=== PATIENT | female | born 1930 | race Caucasian/White ===

== ENCOUNTER 2016-11-10 08:39 | Observation (INO) | payer MEDICARE ==
[~2016-11-10] VITALS: Ht 157.5 cm; Wt 71.9 kg
[~2016-11-10 08:39] MED LIST: ATEN1TAB73; GLIM4TAB PO; GLUCTAB PO; HYDR-3580 PO; LEXA5TAB PO; LOVA1TAB47 PO; MIAC200S; OMEP20CA5 PO; VASO10TA8 PO
[2016-11-10 08:42] VITALS: BP 158/63; PULSE 86; RESP 18; TEMP 97.9; O2SAT 99
[2016-11-10] MEDS ORDERED: CALC1TAB87 PO (08:55)
[2016-11-10] MEDS ORDERED: METF1000 PO (08:55)
[2016-11-10] MEDS ORDERED: LISI-519 PO (08:55)
[2016-11-10] MEDS ORDERED: MULTTAB67 PO (08:55)
[2016-11-10] MEDS ORDERED: LOVA20TA PO (08:55)
[2016-11-10] MEDS ORDERED: OCUVTAB PO (08:55)
[2016-11-10] MEDS ORDERED: COUM2TAB PO (08:55)
[2016-11-10] MEDS ORDERED: GLIM4TAB PO (08:55)
[2016-11-10] MEDS ORDERED: OMEP20TA PO (08:55)
[2016-11-10] MEDS ORDERED: VITA500T83 PO (08:55)
[2016-11-10] MEDS ORDERED: ATEN25TA PO (08:55)
[2016-11-10] MEDS ORDERED: ALBI1INJ SQ (08:55)
[2016-11-10] MEDS ORDERED: SERT25TA83 PO (08:55)
[2016-11-10] MEDS ORDERED: ACETAMINOPHEN/HYDROcodone 325 MG/5 MG TAB PO ONE ×2 (10:00→19:00)
--- NOTE | 2016-11-10 11:12 | RADHPO ---
EXAM DATE/TIME: 11/10/2016 10:30 [facility] COMPARISON: PELVIS AP ONLY, June 13, 2013, 22:21. INDICATIONS : Low back pain, no known injury. MEDICAL HISTORY : None. SURGICAL HISTORY : orif right hip ENCOUNTER: Initial ACUITY: 4 - 6 days PAIN SCORE: 8/10 LOCATION: low back FINDINGS: 2 AP views of the pelvis. Right-sided hip screw and intramedullary roque again seen. Old proximal right femur fracture. No evidence of acute fracture. Degenerative findings lumbar spine. Gallstone noted i n the right upper quadrant of the abdomen. CONCLUSION: 1. Old right proximal femur fracture status post ORIF. No evidence of acute fracture. 2. Degenerative findings lumbar spine. 3. Gallstone. Robert Frankel MD on November 10, 2016 at 11:04 Board Certified Radiologist. This report was verified electronically.
--- NOTE | 2016-11-10 11:16 | RADHPO ---
EXAM DATE/TIME: 11/10/2016 10:32 [facility] COMPARISON: SPINE LUMBAR COMPLETE W/OBLIQ, January 26, 2013, 10:45. INDICATIONS : Low back pain, no known injury. MEDICAL HISTORY : None. SURGICAL HISTORY : None. ENCOUNTER: Initial ACUITY: 4 - 6 days PAIN SCORE: 9/10 LOCATION: low back FINDINGS: 5 views lumbar spine. 2 cm lamellated calcification in the right upper quadrant of the abdomen indica ting a gallstone. Fracture deformity of the L3 vertebral body with superior endplate concavity and de creased height unchanged from prior. Grade 1 anterolisthesis L2 on L3 unchanged. Grade 1 anterolisthe sis L4 on L5 unchanged. Severe intervertebral disc narrowing at L2-3, L3-4, L4-5, and L5-S1. Vacuum p henomenon in the discs at L3-4, L4-5, and L5-S1. Severe bony facet hypertrophy at every level of the lumbar spine. Moderate-sized endplate osteophytes at every level of the lumbar spine. Diffuse arteria l calcification. CONCLUSION: 1. Old L3 vertebral body fracture. 2. Chronic severe bony degenerative findings of the lumbar spine. 3. Cholelithiasis. Robert Frankel MD on November 10, 2016 at 11:10 Board Certified Radiologist. This report was verified electronically.
--- NOTE | 2016-11-10 11:29 | PD ---
HPI Chief Complaint: Back/ Neck Pain or Injury Time Seen by Provider: 09:42 Travel History International Travel<30 days: No Contact w/Intl Traveler<30days: No Traveled to known affect area: No History of Present Illness HPI Is an 85 year-old woman who presents to the emergency department via EMS complaining of low back pain for the past 4 days. Is worse this morning. Symptoms were both lying down. She takes tramadol 3 times a day for arthritis all over including in her back. She denies any recent falls. She otherwise has been feeling generally well. Patient lives in a trailer with her caregiver. She uses a wheelchair in and out of the trailer, and uses a walker to get to the bathroom into her bed. History Past Medical History Narrative Medical A. fib, on warfarin Diabetes Hypertension osteoporosis Menopausal: Yes Social History Alcohol Use: Yes (glass of wine daily) Tobacco Use: No Allergies-Medications (Allergen,Severity, Reaction): Coded Allergies: Gluten (Verified Allergy, Severe, DIARRHEA, STOMACH UPSET, 04/10/13) Lactose (Verified Adverse Reaction, Mild, DIARRHEA, 04/10/13) LACTOSE INTOLERANT Uncoded Allergies: FRUIT (Allergy, Severe, DIARRHEA, GI UPSET, HIVES, 08/29/12) Reported Meds & Prescriptions Reported Meds & Active Scripts Active Reported Sertraline (Sertraline HCl) 25 Mg Tab 25 Mg PO DAILY Tanzeum 4-Pack Inj (Albiglutide) 30 Mg Pfpen 30 Mg SQ Q7D Ocuvite (Multiple Vitamins W/ Minerals) 1 Tab 1 Tab PO DAILY Multiple Vitamin 1 Tab 1 Tab PO DAILY Coumadin (Warfarin) 2 Mg Tab 2 Mg PO DAILY Vitamin C ER (Ascorbic Acid) 500 Mg Juliette 500 Mg PO DAILY Omeprazole 20 Mg Tab 20 Mg PO DAILY Metformin (Metformin HCl) 1,000 Mg Tab 1,000 Mg PO BIDPC With meals Lovastatin 20 Mg Tab 20 Mg PO DAILY Glimepiride 4 Mg Tab 4 Mg PO DAILY Take with breakfast or first main meal Lisinopril 5 Mg Tab 5 Mg PO DAILY Calcium 600 with Vitamin D (Calcium Carbonate-Cholecalciferol) 600-400 mg-Unit Tab 1 Tab PO DAILY Atenolol 25 Mg Tab 25 Mg PO DAILY Review of Systems Except as stated in HPI: all other systems reviewed are Neg Physical Exam Narrative GENERAL: 85 year-old woman, uncomfortable but nontoxic. No acute distress. SKIN: Focused skin assessment warm/dry. NECK: Trachea midline. No JVD. CARDIOVASCULAR: Regular rate and rhythm. No murmur appreciated. RESPIRATORY: No accessory muscle use. Clear to auscultation. Breath sounds equal bilaterally. GASTROINTESTINAL: Abdomen soft, non-tender, nondistended. Hepatic and splenic margins not palpable. MUSCULOSKELETAL: No obvious deformities. Tenderness throughout her very low lumbar spine and sacrum. Stiffness was some increased muscle tone. NEUROLOGICAL: Awake and alert. No obvious cranial nerve deficits. Motor grossly within normal limits. Normal speech. Data Data Last Documented VS Vital Signs Date Time Temp Pulse Resp B/P Pulse Ox O2 Delivery O2 Flow Rate FiO2 11/10/16 08:42 97.9 86 18 158/63 99 Orders Spine, Lumbar Comp W/Obliq (11/10/16 ) Pelvis, Ap Only (Routine) (11/10/16 ) Acetamin-Hydrocod 325-5 Mg ([place] 5-325 (11/10/16 10:00) Complete Blood Count With Diff (11/10/16 12:03) Basic Metabolic Panel (Bmp) (11/10/16 12:03) Urinalysis - C+S If Indicated (11/10/16 12:03) MDM Medical Decision Making Medical Screen Exam Complete: Yes Emergency Medical Condition: Yes Interpretation(s) Lumbar spine x-ray: Old L3 vertebral body fracture. Chronic severe bony degenerative findings in the lumbar spine. Cholelithiasis. X-ray pelvis: Old right proximal femur fracture status post ORIF. No evidence of acute fracture. Differential Diagnosis Acute on chronic back pain, compression fracture, pathologic fracture, infection , constipation, other Narrative Course Medical decision making 85 year-old woman with acute on chronic back pain, no evidence of new fracture. She takes tramadol at baseline. We'll try a short course of Lortab. She can' t take NSAIDs because she is on warfarin. FINAL: 85 year-old woman, intractable back pain. Improved on Lortab. She is able to walk but was still very unstable required a lot of assistance. Both her and her caregiver are comfortable with her going home. She has stairs into the house, and they're both appropriately worried about falling. We'll keep the patient in observation here in the hospital, receive physical therapy, and reassess her. Diagnosis Primary Impression: Intractable back pain Additional Impression: Gait instability Hammad Garcia MD Nov 10, 2016 11:29
[2016-11-10 12:31] LABS: AUTOMATED NEUTROPHIL # 6.2 TH/MM3 (1.8-7.7); BASOPHIL # 0.2 TH/MM3 (0-0.2); BASOPHIL % 2.6 % (0.0-2.0); EOSINOPHIL # 0.1 TH/MM3 (0-0.4); HEMO FLAGS DIFF FINAL; LYMPH % 16.4 % (9.0-44.0); LYMPHOCYTE # 1.4 TH/MM3 (1.0-4.8); MEAN CELL VOLUME 84.3 FL (80.0-100.0); MEAN CORPUSCULAR HEMOGLOBIN 27.4 PG (27.0-34.0); MEAN CORPUSCULAR HGB CONC 32.5 % (32.0-36.0); MONO % 6.9 % (0.0-8.0); NEUT % 73.1 % (16.0-70.0); PLATELET COUNT 152 TH/MM3 (150-450); RED BLOOD COUNT 4.14 MIL/MM3 (4.00-5.30); RED CELL DISTRIBUTION WIDTH 13.8 % (11.6-17.2); WHITE BLOOD COUNT 8.5 TH/MM3 (4.0-11.0)
[2016-11-10 12:35] LABS: POTASSIUM 4.7 MEQ/L (3.5-5.1)
[2016-11-10 12:38] LABS: BICARBONATE 22.4 MEQ/L (21.0-32.0)
[2016-11-10 13:00] VITALS: BP 100/60; PULSE 94; RESP 18; O2SAT 96
[2016-11-10] MEDS ORDERED: traMADol HCL 50 MG TAB PO PRN (15:00)
[2016-11-10] MEDS ORDERED: DEXTROSE 50% IN WATER 50 ML VIAL(D50) IV PRN (15:00)
[2016-11-10] MEDS ORDERED: GLUCAGON 1 MG/ML VIAL OTHER PRN (15:00)
[2016-11-10] MEDS ORDERED: PILL SPLITTER OTHER PRN (15:15)
[2016-11-10 16:00] VITALS: BP 130/74; PULSE 58; RESP 20; TEMP 97.9; O2SAT 97
[2016-11-10] MEDS: INSULIN ASPART SUPPLEMENTAL SCALE SQ SCH ×2 (16:00→21:00)
[2016-11-10 16:03] LABS: INTERNATIONAL NORMALIZED RATIO 3.5 RATIO; PROTHROMBIN TIME - PATIENT 41.2 SEC (9.8-11.6)
[2016-11-10 17:07] LABS: BLOOD, URINE NEG (NEG); GLUCOSE,URINE NEG (NEG); KETONE, URINE TRACE mg/dL (NEG); NITRITE,URINE NEG (NEG); PH, URINE 5.5 (5.0-8.5)
[2016-11-10 17:16] LABS: BACTERIA, URINE MANY /hpf; COMMENT (UR) CULTURE INDICATED; CULTURE IF INDICATED CULTURE INDICATED; RBC, URINE 0-3 /hpf (0-3); SQUAMOUS EPITHELIAL CELL URINE 0-5 /hpf (0-5); URINE COLOR YELLOW (YELLW/STRAW); WBC, URINE 15-19 /hpf (0-5)
[2016-11-10] MEDS: metFORMIN HCL 500 MG TAB PO SCH (17:21)
[2016-11-10 20:08] VITALS: BP 126/64; PULSE 69; RESP 12; TEMP 98.4; O2SAT 92
[2016-11-10 21:08] LABS: INTERNATIONAL NORMALIZED RATIO 3.5 RATIO; PROTHROMBIN TIME - PATIENT 40.5 SEC (9.8-11.6)
--- NOTE | 2016-11-10 22:57 | MH ---
cc: TOM GOOD M.D. DATE OF ADMISSION 11/10/2016 ADMISSION DIAGNOSIS Intractable back pain, gait instability HISTORY OF PRESENT ILLNESS The patient is an 85-year-old female who states that she woke up from bed on Monday morning and had excruciating back pain that did not respond to any treatment. She states that she does not recall a fall, injuring pr bumping herself into anything, turning or twisting. She had some tramadol at home that she normally takes for her arthritis and she had actually tried taking some of this. Finally, she decided to come to the emergency room. She normally takes tramadol for arthritis for particularly her right shoulder and her hip. She does state that she had right hip surgery in the past and she has never been well since that hip surgery but never any pain like the one in her back. She does state that many years ago when she was much younger she did have a fracture along her lumbosacral spine. Normally she uses a wheelchair in her trailer and uses a walker to go from the bathroom and to her bed. She does have I think an electric wheelchair outside of her house. She does have stairs that she needs to go up to get into her trailer. She has a side panel hanger who lives with her and she has a SCRAPER TENDER that will be coming in to help her but with this pain she is not able even to get to the restroom. PAST MEDICAL HISTORY 1. Atrial fibrillation, 2. Depression 3. Diabetes 4. Chronic hip pain as stated 5. Hyperlipidemia 6. Chronic kidney disease III. PAST SURGICAL HISTORY 1. Cataract surgery 2. ORIF of the right ALLERGIES She is not allergic to anything MEDICATIONS 1. Atenolol 25 mg daily. 2. Metformin 1000 mg twice a day. 3. Lovastatin 20 mg daily. 4. Prilosec 20 mg daily. 5. Enalapril 5 mg at bedtime. 6. Glimepiride 4 mg at bedtime. 7. Sertraline 25 mg daily 8. Tanzeum 30 units once a week. 9. Tramadol 50 mg three times a day. HABITS She does have a glass of wine daily. She does not smoke. SOCIAL HISTORY She lives alone with a side panel hanger in her trailer. She is a retired nurse. She has care home care insurance and will be having SCRAPER TENDER help her with activities of daily living. REVIEW OF SYSTEMS She denies any chest pain, shortness of breath or palpitations. No abdominal pain. She has good appetite. No lower extremity swelling. LABORATORY DATA White count of 8.5, hemoglobin of 11.4, hematocrit of 35, platelet count of 152. INR was 3.5. Sodium was 140, potassium was 4.7, BUN was 16, creatinine was one. Her random glucose was 121. Her UA showed moderate leukocyte esterase and a culture is indicated. PHYSICAL EXAMINATION VITAL SIGNS: Temperature is 97.9. Pulse is 58, respirations 20, blood pressure is 130/74, pulse ox on room air is 97%. When I go into the exam room, she is sitting up comfortably in bed reading a newspaper. She does not appear to be in any acute distress. HEENT: Normocephalic Atraumatic. EOM is intact. She is wearing her glasses. She has a moist oral mucosa. NECK: Supple. LUNGS: Clear. She has no rhonchi, rales or wheezes. CARDIOVASCULAR: Her heart sound is regular. ABDOMEN: Good bowel sounds in all four quadrants. EXTREMITIES: No clubbing, cyanosis or edema. Her right leg is a little bit shorter than the left. She has negative straight leg raising, however, she has a lot of pain when she rolls over in the bed to sit up. She is very tender along the right lumbosacral spine, particularly to the left. She has increased pain as she tries to bend forward or rotate her body. IMAGING STUDIES X-ray that had been done showed old L3 vertebral body fracture, chronic severe bony degenerative findings of the lumbar spine, cholelithiasis. She did have severe bony facet hypertrophy at every level. The x-ray of the pelvis showed old right proximal femur fracture status post open reduction internal fixation. No evidence of acute fracture, degenerative findings of the lumbar spine and a gallstone. ASSESSMENT/PLAN An 85-year-old female presented to the emergency room with acute onset of low back pain not relieved with tramadol. She has been admitted for pain control. We will have physical therapy see her. She does seem to get relief from the Lortab. It is just a question of whether or not she can tolerate it with an unsteady gait using a walker, etc., without increasing her fall risk. We will monitor here in the hospital and if she does well, hopefully we will be able to discharge her home in the next 24-36 hours. MD UMER Del Toro/ /8:14 PM /10:37 PM
[2016-11-10] MEDS: ACETAMINOPHEN/HYDROcodone 325 MG/5 MG TAB PO PRN (23:32)
[2016-11-11 00:08] VITALS: BP 130/62; PULSE 70; RESP 14; TEMP 98.6; O2SAT 94
[2016-11-11] MEDS: INSULIN ASPART SUPPLEMENTAL SCALE SQ SCH ×3 (07:00→16:00)
[2016-11-11] MEDS: ACETAMINOPHEN/HYDROcodone 325 MG/5 MG TAB PO PRN ×3 (07:09→15:08)
[2016-11-11 08:00] VITALS: BP 149/76; PULSE 68; RESP 20; TEMP 96.8; O2SAT 99
[2016-11-11] MEDS ORDERED: MULTIVITAMIN-OPHTHALMIC 1 TAB PO SCH (09:00)
[2016-11-11] MEDS ORDERED: ASCORBIC ACID 500 MG TAB PO SCH (09:00)
[2016-11-11] MEDS ORDERED: NON-FORMULARY DRUG (Multiple Vitamin 1 TAB) PO SCH (09:00)
[2016-11-11] MEDS ORDERED: PRAVASTATIN SOD 20 MG TAB PO SCH (09:00)
[2016-11-11] MEDS ORDERED: PANTOPRAZOLE SOD 20 MG DELAYED RELEASE TAB PO SCH (09:00)
[2016-11-11] MEDS ORDERED: GLIMEPIRIDE 4 MG TAB PO SCH (09:00)
[2016-11-11] MEDS ORDERED: SERTRALINE HCL 50 MG TAB PO SCH (09:00)
[2016-11-11] MEDS ORDERED: ATENOLOL 25 MG TAB PO SCH (09:00)
[2016-11-11] MEDS ORDERED: LISINOPRIL 5 MG TAB PO SCH (09:00)
[2016-11-11] MEDS: metFORMIN HCL 500 MG TAB PO SCH ×2 (10:24→17:31)
--- NOTE | 2016-11-11 11:44 | HHI.PR ---
Subjective Remarks Slept well last night but significant amount of pain when she tried to get out of bed. Some relief with norco but took a while to receive it. States she is usually able to get out of bed alone at home, uses walker in trailer to get about. Denies burning, dysuria, fever . chills or frequency. States she has had uti's in the past and would know if she has one. Wears diapers. Objective Vitals Vital Signs Date Time Temp Pulse Resp B/P Pulse Ox O2 Delivery O2 Flow Rate FiO2 11/11/16 08:00 96.8 68 20 149/76 99 11/11/16 00:08 98.6 70 14 130/62 94 11/10/16 20:08 98.4 69 12 126/64 92 11/10/16 16:00 97.9 58 20 130/74 97 11/10/16 13:00 94 18 100/60 96 Room Air 11/10/16 11/10/16 11/11/16 15:00 23:00 07:00 Output Total 300 ml Balance -300 ml Output Urine Total 300 ml # Voids 1 1 # Bowel Movements 1 Result Diagram: 11/10/16 1216 11/10/16 1216 Other Results Laboratory Tests Test 11/10/16 11/10/16 11/10/16 12:16 16:45 20:42 Hemoglobin 11.4 GM/DL (11.6-15.3) Neutrophils (%) (Auto) 73.1 % (16.0-70.0) Basophils (%) (Auto) 2.6 % (0.0-2.0) Prothrombin Time 41.2 SEC 40.5 SEC (9.8-11.6) (9.8-11.6) Chloride Level 108 MEQ/L (98-107) Estimat Glomerular Filtration 53 ML/MIN (>89) Rate Random Glucose 121 MG/DL (74-106) Urine Turbidity CLOUDY (CLEAR) Urine Ketones TRACE mg/dL (NEG) Urine Leukocyte Esterase MOD (NEG) Urine WBC 15-19 /hpf (0-5) Urine Bacteria MANY /hpf (NONE) Imaging Last Impressions Pelvis X-Ray 11/10/16 0000 Signed Impressions: Service Date/Time: November 10:30 - CONCLUSION: 1. Old right proximal femur fracture status post ORIF. No evidence of acute fracture. 2. Degenerative findings lumbar spine. 3. Gallstone. Robert Frankel MD Lumbar Spine X-Ray 11/10/16 0000 Signed Impressions: Service Date/Time: November 10:32 - CONCLUSION: 1. Old L3 vertebral body fracture. 2. Chronic severe bony degenerative findings of the lumbar spine. 3. Cholelithiasis. Robert Frankel MD Objective Remarks Lying in bed, looks comfortable cta rrr +bs, nontender tender l-s spine, unable to bend foward due to pain A/P Problem List: (1) Gait instability Status: Chronic Plan: normally limited in mobility with need of walker and wheelchair but able to move around her home environment now unable to get out of bed w/o pain and assistence, cont PT and pain control (2) Intractable back pain Status: Acute Plan: awoke with sudden onset of back back xray with severe djd and evidence of prior compression fractures she has significant osteoporosis to the extent she sustained a hip fracture simply by standing will check mri, try back brace (3) Diabetes Status: Chronic Plan: Cont diabetic diet and home regimen (4) Abnormal urinalysis Status: Acute Plan: Ed ran u/a on her . Suspect due to complaint of back pain. Culture pending. Was going to treat for uti but she really has no uti symptoms. Will monitor culture and clinical status before treating. (5) CHRONIC ATRIAL FIBRILLATION Status: Chronic Plan: on coumadin , inr supratherapeutic, hold coumadin for now. Problem Qualifiers (1) Diabetes: Angela Strauss MD Nov 11, 2016 11:44
[2016-11-11 12:00] VITALS: BP 140/63; PULSE 57; RESP 20; TEMP 97; O2SAT 96
[2016-11-11] MEDS ORDERED: SULFAMETHOXAZOLE-TRIMETHOPRIM DS 800-160 MG TAB PO SCH (12:00)
[2016-11-11] MEDS ORDERED: ACETAMINOPHEN/HYDROcodone 325 MG/5 MG TAB PO SCH (12:00)
--- NOTE | 2016-11-11 13:31 | RADHPO ---
EXAM DATE/TIME: 11/11/2016 12:14 [facility] COMPARISON: No previous studies available for comparison. INDICATIONS : Low back pain MEDICAL HISTORY : Hypertension. Diabetes mellitus type 2. SURGICAL HISTORY : Tubal ligation. Right hip repair, bladder tack, cataract. ENCOUNTER: Initial ACUITY: 1 day PAIN SCORE: 5/10 LOCATION: [facility] TECHNIQUE: Multiplanar multisequence MRI of the lumbar spine was performed without contrast. FINDINGS: There are extensive degenerative changes in the lumbar spine. There is loss of vertebral body height at L2, L3 and L4. There is very subtle end plate compression at L1 that would be consistent with a subtle acute compression. T12-L1: There is mild interspace ridging without significant spinal stenosis, neural foramina adequate. Mild disc protrusion is evident. L1-L2: There is some mild bulging at L1-2 causing some flattening of the anterior thecal space without signi ficant spinal stenosis, neural foramina are adequate. L2-L3: There is a central disc protrusion evident flattening the anterior thecal space causing a mild degree of spinal stenosis. Neural foramina are adequate. L3-L4: There is generalized bulging at L3-4 causing some flattening of the anterior thecal space with modera te degenerative changes of the facets. L4-L5: Degenerative changes are present at L4-5 with bilateral neural foramina encroachment worse on the lef t than the right with extensive facet arthritis present. L5-S1: There is mild uncinate ridging present with bilateral neural foramina encroachment. Mild facet disea se is present worse on the right than the left. SI joints are normal. CONCLUSION: 1. Subtle compression of L1. 2. Extensive disc disease at multiple levels at L3-4. 3. Old compression at L2 and L3. Ptee Sandra MD FACR on November 11, 2016 at 13:18 Board Certified Radiologist. This report was verified electronically.
[2016-11-11 16:00] VITALS: BP 128/61; PULSE 58; RESP 20; TEMP 98.8; O2SAT 94
[2016-11-11] MEDS ORDERED: WARFARIN SOD 2 MG TAB PO SCH (16:00)
[2016-11-11] MEDS ORDERED: HYDR-3516 PO (17:31)
[2016-11-15] MEDS ORDERED: ALBIGLUTIDE 30 MG SQ SCH (09:00)
== END 2016-11-11 18:47 ==
LOC: PHED 08:39 → PHEDA 12:10 → PH3B 15:12
PROVIDERS: ADMIT Legal Medicine; ATTEND Legal Medicine
DX: R26.9 Unspecified abnormalities of gait and mobility (principal); M81.0 Age-related osteoporosis without current pathological fracture; G89.29 Other chronic pain; M25.559 Pain in unspecified hip; R82.99 Other abnormal findings in urine; B96.20 Unspecified Escherichia coli [E. coli] as the cause of diseases classified elsewhere; I48.2 Chronic atrial fibrillation; E11.22 Type 2 diabetes mellitus with diabetic chronic kidney disease; N18.3 Chronic kidney disease, stage 3 (moderate); E78.5 Hyperlipidemia, unspecified; M19.90 Unspecified osteoarthritis, unspecified site
CPT/HCPCS: 72110; 72148; 72170; 80048; 81001; 82948; 85025; 85610; 87077; 87086; 87186; 97162; 99285; G0378; G8987; G8988

== ENCOUNTER 2017-08-07 17:08 | Inpatient (IN) | payer MEDICARE ==
[~2017-08-07] VITALS: Ht 167.6 cm; Wt 72.7 kg
[~2017-08-07 17:08] MED LIST changes: +ALBI1INJ SQ; -ATEN1TAB73; +ATEN25TA PO; +CALC1TAB87 PO; +COUM2TAB PO; -GLUCTAB PO; +HYDR-3516 PO; -HYDR-3580 PO; -LEXA5TAB PO; +LISI-519 PO; -LOVA1TAB47 PO; +LOVA20TA PO; +METF1000 PO; -MIAC200S; +MULTTAB67 PO; +OCUVTAB PO; -OMEP20CA5 PO; +OMEP20TA93 PO; +SERT25TA83 PO; -VASO10TA8 PO; +VITA500T83 PO
[2017-08-07 17:27] VITALS: BP 141/65; PULSE 72; RESP 18; TEMP 98.4; O2SAT 96
[2017-08-07] MEDS ORDERED: LACTULOSE SYRUP 20 GM/30 ML CUP PO PRN (18:45)
[2017-08-07] MEDS ORDERED: NALOXONE HCL 0.4 MG/ML AMP IV PUSH PRN (18:45)
[2017-08-07] MEDS ORDERED: MAGNESIUM HYDROXIDE SUSP 30 ML CUP PO PRN (18:45)
[2017-08-07] MEDS ORDERED: ACETAMINOPHEN 325 MG TAB PO PRN (18:45)
[2017-08-07] MEDS ORDERED: SODIUM CHLORIDE 0.9% FLUSH 10 ML FLUSH IV FLUSH PRN (18:45)
[2017-08-07] MEDS ORDERED: BISACODYL 10 MG SUPP RECTAL PRN (18:45)
[2017-08-07] MEDS ORDERED: SENNOSIDES 8.6 MG TAB PO PRN (18:45)
[2017-08-07] MEDS ORDERED: ONDANSETRON HCL 4 MG/2 ML VIAL IVP PRN (18:45)
--- NOTE | 2017-08-07 19:15 | HHI.HP ---
HPI Service [facility] Hospitalists Primary Care Physician Chucho Kim MD Admission Diagnosis pneumonia Chief Complaint: cough ,congestion weakness progressed over 1 week Travel History International Travel<30 Days: No Contact w/Intl Traveler <30 Da: No Traveled to Known Affected Are: No History of Present Illness 86 y/o white female with hx atrial fib,dm who has had cough congestion fever for about 1 week and had outpatient chest xray showing pneumonia and admitted for IV antibiotics . Patient has live in primary care coordinator but the primary care coordinator is very sick herself and patient basicly wheel chair bound from djd lumbar and previous hip surgery. Labs are pending,will start on rocephin and zithromax. Patient also complains of generalized weakness ,chills. Review of Systems Constitutional: COMPLAINS OF: Fatigue, Fever Respiratory: COMPLAINS OF: Cough, Sputum production Past Family Social History Past Medical History dm,atrial fib,depression,hyperlipidemia, Past Surgical History cataract rt hip surgery Reported Medications atenolol 25,[id number] bid,lisinopril 5,glipizide 4mg prilosec 20 sertraline 25 tanzeum Allergies: Coded Allergies: gluten (Unverified Allergy, Severe, DIARRHEA, STOMACH UPSET, 01/24/17) lactose (Unverified Adverse Reaction, Mild, DIARRHEA, 01/24/17) LACTOSE INTOLERANT Uncoded Allergies: FRUIT (Allergy, Severe, DIARRHEA, GI UPSET, HIVES, 08/29/12) Social History drinks occ non smoker Physical Exam Vital Signs Vital Signs Date Time Temp Pulse Resp B/P (MAP) Pulse Ox O2 Delivery O2 Flow Rate FiO2 08/07/17 17:27 98.4 72 18 141/65 (90) 96 Physical Exam GENERAL: This is a well-nourished, well-developed patient, in no apparent distress. SKIN: No rashes, ecchymoses or lesions. Cool and dry. HEAD: Atraumatic. Normocephalic. No temporal or scalp tenderness. EYES: Pupils equal round and reactive. Extraocular motions intact. No scleral icterus. No injection or drainage. ENT: Nose without bleeding, purulent drainage or septal hematoma. Throat without erythema, tonsillar hypertrophy or exudate. Uvula midline. Airway patent. NECK: Trachea midline. No JVD or lymphadenopathy. Supple, nontender, no meningeal signs. CARDIOVASCULAR: Regular rate and rhythm without murmurs, gallops, or rubs. RESPIRATORY: Decrease breath sounds with rhonchi bases GASTROINTESTINAL: Abdomen soft, non-tender, nondistended. No hepato-splenomegaly , or palpable masses. No guarding. MUSCULOSKELETAL: Extremities without clubbing, cyanosis, or edema. No joint tenderness, effusion, or edema noted. No calf tenderness. Negative Homans sign bilaterally. NEUROLOGICAL: Awake and alert. Cranial nerves II through XII intact. Motor and sensory grossly within normal limits. Five out of 5 muscle strength in all muscle groups. Normal speech. Laboratory pending Imaging cxr as out patient showed lower lobe infiltrate consistent with pneumonia Course as above start antibiotics Caprini VTE Risk Assessment Caprini VTE Risk Assessment: Mod/High Risk (score >= 2) Caprini Risk Assessment Model Point Value = 1 Point Value = 2 Point Value = 3 Point Value = 5 Age 41-60 Minor surgery BMI > 25 kg/m2 Swollen legs Varicose veins or History of unexplained or recurrent spontaneous Oral contraceptives or hormone replacement Sepsis (< 1 month) Serious lung disease, including pneumonia (< 1 month) Abnormal pulmonary function Acute myocardial infarction Congestive heart failure (< 1 month) History of inflammatory bowel disease Medical patient at bed rest Age 61-74 Arthroscopic surgery Major open surgery (> 45 min) Laparoscopic surgery (> 45 min) Malignancy Confined to bed (> 72 hours) Immobilizing plaster cast Central venous access Age >= 75 History of VTE Family history of VTE Factor V Leiden Prothrombin [id number] Lupus anticoagulant Anticardiolipin antibodies Elevated serum homocysteine Heparin-induced thrombocytopenia Other congenital or acquired thrombophilia Stroke (< 1 month) Elective arthroplasty Hip, pelvis, or leg fracture Acute spinal cord injury (< 1 month) Prophylaxis Regimen Total Risk Factor Score Risk Level Prophylaxis Regimen 0-1 Low Early ambulation 2 Moderate Order ONE of the following: *Sequential Compression Device (SCD) *Heparin 5000 units SQ BID 3-4 Higher Order ONE of the following medications: *Heparin 5000 units SQ TID *Enoxaparin/Lovenox 40 mg SQ daily (WT < 150 kg, CrCl > 30 mL/min) *Enoxaparin/Lovenox 30 mg SQ daily (WT < 150 kg, CrCl > 10-29 mL/min) *Enoxaparin/Lovenox 30 mg SQ BID (WT < 150 kg, CrCl > 30 mL/min) AND/OR *Sequential Compression Device (SCD) 5 or more Highest Order ONE of the following medications: *Heparin 5000 units SQ TID (Preferred with Epidurals) *Enoxaparin/Lovenox 40 mg SQ daily (WT < 150 kg, CrCl > 30 mL/min) *Enoxaparin/Lovenox 30 mg SQ daily (WT < 150 kg, CrCl > 10-29 mL/min) *Enoxaparin/Lovenox 30 mg SQ BID (WT < 150 kg, CrCl > 30 mL/min) AND *Sequential Compression Device (SCD) Assessment and Plan Problem List: (1) Pneumonia ICD Codes: J18.9 - Pneumonia, unspecified organism Plan: rocephin and zithromax IV as patient rn l and d is sick will need rehab (2) CHRONIC ATRIAL FIBRILLATION ICD Codes: I48.2 - CHRONIC ATRIAL FIBRILLATION Status: Chronic Plan: continue home medications (3) Diabetes ICD Codes: E11.9 - Type 2 diabetes mellitus without complications Status: Chronic Plan: sliding scale home medications Assessment and Plan further plan as case develops Code Status full Discussed Condition With patient Physician Certification 2 Midnight Certification Type: Admission for Inpatient Services Order for Inpatient Services The services are ordered in accordance with Medicare regulations or non- Medicare payer requirements, as applicable. In the case of services not specified as inpatient-only, they are appropriately provided as inpatient services in accordance with the 2-midnight benchmark. Estimated LOS (days): 2 2 days is the estimated time the patient will need to remain in the hospital, assuming treatment plan goals are met and no additional complications. Post-Hospital Plan: SNF Problem Qualifiers (1) Pneumonia: Chucho Kim MD Aug 07, 2017 19:15
[2017-08-07 20:00] VITALS: BP 146/67; PULSE 81; RESP 17; TEMP 98.1; O2SAT 94
[2017-08-07] MEDS ORDERED: PILL SPLITTER OTHER PRN (20:30)
[2017-08-07] MEDS: SODIUM CHLOR 0.45% 1000 ML INJ 1,000 ML IV SCH (20:51)
[2017-08-07] MEDS: SODIUM CHLORIDE 0.9% FLUSH 10 ML FLUSH IV FLUSH SCH (20:52)
[2017-08-07] MEDS: DOCUSATE SODIUM 50 MG/SENNA 8.6 MG TAB PO SCH (20:52)
[2017-08-07] MEDS ORDERED: cefTRIAXone INJ 1,000 MG in SODIUM CHLORIDE 0.9% INJ 100 ML IV ONE (21:00)
[2017-08-07] MEDS ORDERED: AZITHROMYCIN INJ 500 MG in SODIUM CHLOR 0.9% 250 ML INJ 250 ML IV ONE (21:00)
[2017-08-07 21:44] LABS: AUTOMATED NEUTROPHIL # 10.4 TH/MM3 (1.8-7.7); BASOPHIL # 0.1 TH/MM3 (0-0.2); BASOPHIL % 0.4 % (0.0-2.0); EOSINOPHIL # 0.1 TH/MM3 (0-0.4); EOSINOPHIL % 0.9 % (0.0-4.0); HEMATOCRIT 30.9 % (35.0-46.0); HEMOGLOBIN 10.1 GM/DL (11.6-15.3); LYMPH % 13.2 % (9.0-44.0); LYMPHOCYTE # 1.8 TH/MM3 (1.0-4.8); MEAN CELL VOLUME 81.8 FL (80.0-100.0); MEAN CORPUSCULAR HEMOGLOBIN 26.8 PG (27.0-34.0); MEAN CORPUSCULAR HGB CONC 32.8 % (32.0-36.0); MEAN PLATELET VOLUME 9.6 FL (7.0-11.0); MONO % 11.4 % (0.0-8.0); MONOCYTE # 1.6 TH/MM3 (0-0.9); NEUT % 74.1 % (16.0-70.0); PLATELET COUNT 195 TH/MM3 (150-450); RED BLOOD COUNT 3.77 MIL/MM3 (4.00-5.30); RED CELL DISTRIBUTION WIDTH 15.2 % (11.6-17.2)
[2017-08-07 21:49] LABS: INTERNATIONAL NORMALIZED RATIO 3.1 RATIO; PROTHROMBIN TIME - PATIENT 31.4 SEC (9.8-11.6)
[2017-08-07 21:55] LABS: BICARBONATE 23.4 MEQ/L (21.0-32.0); CALCIUM 9.5 MG/DL (8.5-10.1); CREATININE 1.13 MG/DL (0.50-1.00)
[2017-08-07] MEDS ORDERED: DEXTROSE 50% IN WATER 50 ML VIAL(D50) IV PUSH PRN (22:45)
[2017-08-07] MEDS ORDERED: GLUCAGON 1 MG/ML VIAL OTHER PRN (22:45)
[2017-08-07] MEDS ORDERED: POTASSIUM CHLORIDE 8 MEQ CONTROLLED RELEASE TAB PO ONE (23:00)
[2017-08-07 23:25] VITALS: BP 139/62; PULSE 81; RESP 18; TEMP 98.2; O2SAT 96
[2017-08-07] MEDS: ACETAMINOPHEN/HYDROcodone 325 MG/5 MG TAB PO SCH (23:43)
[2017-08-08] VITALS (8 sets, daily range): BP systolic 116–157; BP diastolic 59–67; PULSE 52–73; RESP 13–20; TEMP 98.2–99.3; O2SAT 96–100
[2017-08-08] MEDS: ACETAMINOPHEN/HYDROcodone 325 MG/5 MG TAB PO SCH ×4 (05:03→23:59)
[2017-08-08] MEDS: guaiFENesin/DEXTROMETHORPHAN 200 MG/20 MG/10 ML CUP PO PRN ×3 (05:49→18:51)
[2017-08-08 06:29] LABS: AUTOMATED NEUTROPHIL # 8.7 TH/MM3 (1.8-7.7); BASOPHIL # 0.1 TH/MM3 (0-0.2); BASOPHIL % 0.6 % (0.0-2.0); EOSINOPHIL # 0.1 TH/MM3 (0-0.4); EOSINOPHIL % 1.1 % (0.0-4.0); HEMATOCRIT 29.6 % (35.0-46.0); HEMOGLOBIN 9.7 GM/DL (11.6-15.3); LYMPH % 15.1 % (9.0-44.0); LYMPHOCYTE # 1.8 TH/MM3 (1.0-4.8); MEAN CELL VOLUME 81.9 FL (80.0-100.0); MEAN CORPUSCULAR HEMOGLOBIN 26.7 PG (27.0-34.0); MEAN CORPUSCULAR HGB CONC 32.6 % (32.0-36.0); MEAN PLATELET VOLUME 9.6 FL (7.0-11.0); MONO % 10.3 % (0.0-8.0); MONOCYTE # 1.2 TH/MM3 (0-0.9); NEUT % 72.9 % (16.0-70.0); PLATELET COUNT 180 TH/MM3 (150-450); RED BLOOD COUNT 3.62 MIL/MM3 (4.00-5.30); RED CELL DISTRIBUTION WIDTH 15.4 % (11.6-17.2); WHITE BLOOD COUNT 11.9 TH/MM3 (4.0-11.0)
[2017-08-08 06:56] LABS: BICARBONATE 23.7 MEQ/L (21.0-32.0); CALCIUM 8.7 MG/DL (8.5-10.1); CREATININE 1.01 MG/DL (0.50-1.00)
[2017-08-08] MEDS: INSULIN ASPART SUPPLEMENTAL SCALE SQ SCH ×4 (07:39→21:00)
[2017-08-08] MEDS: MULTIVITAMIN TAB PO SCH (08:51)
[2017-08-08] MEDS: ATENOLOL 25 MG TAB PO SCH (08:52)
[2017-08-08] MEDS: SERTRALINE HCL 50 MG TAB PO SCH (08:52)
[2017-08-08] MEDS: PRAVASTATIN SOD 20 MG TAB PO SCH (08:52)
[2017-08-08] MEDS: PANTOPRAZOLE SOD 20 MG DELAYED RELEASE TAB PO SCH (08:52)
[2017-08-08] MEDS: DOCUSATE SODIUM 50 MG/SENNA 8.6 MG TAB PO SCH ×2 (08:53→21:54)
[2017-08-08] MEDS: CALCIUM/VITAMIN D 250 MG/125 U TAB PO SCH (08:53)
[2017-08-08] MEDS: LISINOPRIL 5 MG TAB PO SCH (08:53)
[2017-08-08] MEDS: MULTIVITAMIN-OPHTHALMIC 1 TAB PO SCH (08:53)
[2017-08-08] MEDS: SODIUM CHLORIDE 0.9% FLUSH 10 ML FLUSH IV FLUSH SCH ×2 (08:54→21:56)
--- NOTE | 2017-08-08 08:55 | RADRPT ---
EXAM DATE/TIME: 08/08/2017 08:23 [facility] COMPARISON: No previous studies available for comparison. INDICATIONS : Pneumonia. Shortness of breath, cough. MEDICAL HISTORY : None. SURGICAL HISTORY : None. ENCOUNTER: Initial ACUITY: 1 day PAIN SCORE: 0/10 LOCATION: Bilateral chest FINDINGS: PA and lateral views of the chest demonstrate the lungs to be hyperaerated without evidence of mass, infiltrate or effusion. Heart enlarged. Blunting costophrenic angle posteriorly on the left. The card iomediastinal contours are unremarkable. Osseous structures are intact. CONCLUSION: 1. Hyperinflation which can be seen with COPD. 2. No infiltrate. 3. Cardiomegaly. 4. Probable pleural scarring. Greg Alvarez MD on August 08, 2017 at 8:53 Board Certified Radiologist. This report was verified electronically.
[2017-08-08] MEDS ORDERED: ASCORBIC ACID 500 MG PO SCH (09:00)
[2017-08-08] MEDS ORDERED: GLIMEPIRIDE 4 MG TAB PO SCH (09:00)
[2017-08-08] MEDS ORDERED: ALBIGLUTIDE SQ SCH (09:00)
[2017-08-08] MEDS ORDERED: metFORMIN HCL 500 MG TAB PO SCH (09:00)
[2017-08-08] MEDS: SODIUM CHLOR 0.45% 1000 ML INJ 1,000 ML IV SCH (10:28)
--- NOTE | 2017-08-08 15:17 | HHI.PR ---
Subjective Remarks Pt sitting up in the chair and reports that she is feeling overall better today but had a lot of coughing overnight. She is eating better today Objective Vitals Vital Signs Date Time Temp Pulse Resp B/P (MAP) Pulse Ox O2 Delivery O2 Flow Rate FiO2 08/08/17 12:16 98 08/08/17 09:01 Nasal Cannula 2.00 08/08/17 08:04 99.1 72 16 137/62 (87) 98 08/08/17 06:22 Nasal Cannula 2.00 08/08/17 04:15 98.2 73 18 138/66 (90) 97 08/08/17 04:10 Room Air 08/08/17 00:00 Room Air 08/07/17 23:25 98.2 81 18 139/62 (87) 96 08/07/17 20:00 Room Air 08/07/17 20:00 98.1 81 17 146/67 (93) 94 08/07/17 17:27 98.4 72 18 141/65 (90) 96 08/08/17 08/08/17 08/09/17 15:00 23:00 07:00 Intake Total 1000 ml Balance 1000 ml IV Total 1000 ml Result Diagram: 08/08/17 0500 08/08/17 0500 Other Results Laboratory Tests Test 08/07/17 20:55 08/08/17 05:00 White Blood Count 14.0 TH/MM3 11.9 TH/MM3 Red Blood Count 3.77 MIL/MM3 3.62 MIL/MM3 Hemoglobin 10.1 GM/DL 9.7 GM/DL Hematocrit 30.9 % 29.6 % Mean Corpuscular Volume 81.8 FL 81.9 FL Mean Corpuscular Hemoglobin 26.8 PG 26.7 PG Mean Corpuscular Hemoglobin Concent 32.8 % 32.6 % Red Cell Distribution Width 15.2 % 15.4 % Platelet Count 195 TH/MM3 180 TH/MM3 Mean Platelet Volume 9.6 FL 9.6 FL Neutrophils (%) (Auto) 74.1 % 72.9 % Lymphocytes (%) (Auto) 13.2 % 15.1 % Monocytes (%) (Auto) 11.4 % 10.3 % Eosinophils (%) (Auto) 0.9 % 1.1 % Basophils (%) (Auto) 0.4 % 0.6 % Neutrophils # (Auto) 10.4 TH/MM3 8.7 TH/MM3 Lymphocytes # (Auto) 1.8 TH/MM3 1.8 TH/MM3 Monocytes # (Auto) 1.6 TH/MM3 1.2 TH/MM3 Eosinophils # (Auto) 0.1 TH/MM3 0.1 TH/MM3 Basophils # (Auto) 0.1 TH/MM3 0.1 TH/MM3 CBC Comment DIFF FINAL DIFF FINAL Differential Comment Prothrombin Time 31.4 SEC Prothromb Time International Ratio 3.1 RATIO Blood Urea Nitrogen 18 MG/DL 17 MG/DL Creatinine 1.13 MG/DL 1.01 MG/DL Random Glucose 43 MG/DL 83 MG/DL Calcium Level 9.5 MG/DL 8.7 MG/DL Sodium Level 138 MEQ/L 138 MEQ/L Potassium Level 3.4 MEQ/L 3.9 MEQ/L Chloride Level 105 MEQ/L 107 MEQ/L Carbon Dioxide Level 23.4 MEQ/L 23.7 MEQ/L Anion Gap 10 MEQ/L 7 MEQ/L Estimat Glomerular Filtration Rate 46 ML/MIN 52 ML/MIN Imaging Last Impressions Chest X-Ray 08/08/17 0600 Signed Impressions: Service Date/Time: Tuesday, August 08, 2017 08:23 - CONCLUSION: 1. Hyperinflation which can be seen with COPD. 2. No infiltrate. 3. Cardiomegaly. 4. Probable pleural scarring. Greg Alvarez MD Outpt CXR (08/07/17): - Patchy infiltrate in the right lung base, rule out pneumonia. There is otherwise some fibrotic appearing change throughout the lungs. The heart size is the upper limits of normal. Mild degenerative changes of scoliosis noted throughout the spine. Objective Remarks General: NAD Chest: Equal air movement bilaterally Cardiac: Irregular Abd: +BS, soft ND/NT Ext: No edema A/P Problem List: (1) Pneumonia ICD Codes: J18.9 - Pneumonia, unspecified organism Plan: - Pt is an 86 y/o female with chronic A. fib, HTN, hyperlipidemia, diabetes mellitus, and CKD stage 3 - She was admitted to [facility] [place] on 08/07/17 with complaints of productive cough, congestion who had an outpt CXR on 08/07/17 that noted possible RLL pneumonia. Pt lives with a promotions specialist who has also been sick recently - Her labs at admission noted elevated WBC count of 14 - Pt was started on IV Rocephin and Azithromycin for CAP - Pt was also given some IVF, pt eating better today, stop IVF on 08/08 - PT evaluated today and recommended SNF placement at the end of this hospitalization. - Case management is following for discharge planning. - Repeat CXR in AM - Anticipate d/c to SNF tomorrow (2) CHRONIC ATRIAL FIBRILLATION ICD Codes: I48.2 - CHRONIC ATRIAL FIBRILLATION Status: Chronic Plan: - Pt was continued on Atenolol 25mg po daily and Coumadin - INR on 08/07 was 3.1 - Hold Coumadin dose today and recheck INR in AM (3) Diabetes ICD Codes: E11.9 - Type 2 diabetes mellitus without complications Status: Chronic Plan: - Amaryl 4mg po daily and Metformin 1000mg po BIDPC were continued at admission - NovoLog SSI - Accu checks (4) CKD (chronic kidney disease) stage 3, GFR 30-59 ml/min ICD Codes: N18.3 - Chronic kidney disease, stage 3 (moderate) Status: Chronic Plan: - Labs are stable Assessment and Plan Patient examined. Assessment and plan formulated with Cira Hernández PA-C. I agree with the above. Problem Qualifiers (1) Pneumonia: (2) Diabetes: Cira Hernández Aug 08, 2017 15:17 Willis Harris DO Aug 14, 2017 10:44
[2017-08-08] MEDS ORDERED: WARFARIN SOD 2 MG TAB PO SCH (16:00)
[2017-08-08] MEDS: cefTRIAXone INJ 1,000 MG in SODIUM CHLORIDE 0.9% INJ 100 ML IV SCH (21:54)
[2017-08-08] MEDS: AZITHROMYCIN INJ 500 MG in SODIUM CHLOR 0.9% 250 ML INJ 250 ML IV SCH (21:55)
[2017-08-09] VITALS (8 sets, daily range): BP systolic 110–158; BP diastolic 50–84; PULSE 69–93; RESP 14–18; TEMP 96.8–98.3; O2SAT 92–100
[2017-08-09] MEDS: guaiFENesin/DEXTROMETHORPHAN 200 MG/20 MG/10 ML CUP PO PRN (00:32)
[2017-08-09] MEDS: guaiFENesin/CODEINE SYRUP 200 MG/20 MG/10 ML CUP PO PRN ×3 (04:35→17:57)
[2017-08-09] MEDS: ACETAMINOPHEN/HYDROcodone 325 MG/5 MG TAB PO SCH ×4 (05:55→23:44)
--- NOTE | 2017-08-09 06:35 | RADRPT ---
EXAM DATE/TIME: 08/09/2017 05:17 [place] COMPARISON: CHEST PA & LAT, August 08, 2017, 8:23. INDICATIONS : Evaluate for pneumonia. MEDICAL HISTORY : None. SURGICAL HISTORY : None. ENCOUNTER: Subsequent ACUITY: 2 days PAIN SCORE: Non-responsive. LOCATION: Bilateral chest FINDINGS: Minimal airspace disease in the left lung base. Cardiac silhouette is enlarged. Remainder of exam is unchanged. CONCLUSION: 1. Minimal left lung base linear airspace disease consistent with atelectasis. Sj Luz MD on August 09, 2017 at 6:33 Board Certified Radiologist. This report was verified electronically.
[2017-08-09 07:47] LABS: INTERNATIONAL NORMALIZED RATIO 2.2 RATIO; PROTHROMBIN TIME - PATIENT 22.5 SEC (9.8-11.6)
[2017-08-09 07:52] LABS: AUTOMATED NEUTROPHIL # 6.5 TH/MM3 (1.8-7.7); BASOPHIL # 0.1 TH/MM3 (0-0.2); BASOPHIL % 0.7 % (0.0-2.0); EOSINOPHIL # 0.3 TH/MM3 (0-0.4); EOSINOPHIL % 3.3 % (0.0-4.0); HEMATOCRIT 30.1 % (35.0-46.0); HEMOGLOBIN 9.9 GM/DL (11.6-15.3); LYMPH % 17.7 % (9.0-44.0); LYMPHOCYTE # 1.8 TH/MM3 (1.0-4.8); MEAN CELL VOLUME 83.1 FL (80.0-100.0); MEAN CORPUSCULAR HEMOGLOBIN 27.3 PG (27.0-34.0); MEAN CORPUSCULAR HGB CONC 32.9 % (32.0-36.0); MEAN PLATELET VOLUME 9.5 FL (7.0-11.0); MONO % 12.5 % (0.0-8.0); MONOCYTE # 1.2 TH/MM3 (0-0.9); NEUT % 65.8 % (16.0-70.0); PLATELET COUNT 186 TH/MM3 (150-450); RED BLOOD COUNT 3.62 MIL/MM3 (4.00-5.30); RED CELL DISTRIBUTION WIDTH 15.7 % (11.6-17.2); WHITE BLOOD COUNT 9.9 TH/MM3 (4.0-11.0)
[2017-08-09] MEDS: INSULIN ASPART SUPPLEMENTAL SCALE SQ SCH ×3 (08:00→21:00)
[2017-08-09 08:10] LABS: CALCIUM 8.7 MG/DL (8.5-10.1); CREATININE 1.16 MG/DL (0.50-1.00); MAGNESIUM 1.7 MG/DL (1.5-2.5)
[2017-08-09] MEDS: DOCUSATE SODIUM 50 MG/SENNA 8.6 MG TAB PO SCH ×3 (09:00→21:14)
[2017-08-09] MEDS: metFORMIN HCL 500 MG TAB PO SCH ×2 (09:00→17:59)
[2017-08-09] MEDS: CALCIUM/VITAMIN D 250 MG/125 U TAB PO SCH (09:16)
[2017-08-09] MEDS: MULTIVITAMIN TAB PO SCH (09:16)
[2017-08-09] MEDS: MULTIVITAMIN-OPHTHALMIC 1 TAB PO SCH (09:16)
[2017-08-09] MEDS: PANTOPRAZOLE SOD 20 MG DELAYED RELEASE TAB PO SCH (09:16)
[2017-08-09] MEDS: LISINOPRIL 5 MG TAB PO SCH (09:16)
[2017-08-09] MEDS: PRAVASTATIN SOD 20 MG TAB PO SCH (09:17)
[2017-08-09] MEDS: ATENOLOL 25 MG TAB PO SCH (09:17)
[2017-08-09] MEDS: SERTRALINE HCL 50 MG TAB PO SCH (09:17)
[2017-08-09] MEDS: SODIUM CHLORIDE 0.9% FLUSH 10 ML FLUSH IV FLUSH SCH ×2 (09:20→21:14)
[2017-08-09] MEDS ORDERED: LEVO500T8 PO (16:20)
[2017-08-09] MEDS ORDERED: guaiFEN-COD 200-20 MG/10ML LIQ PO (18:45)
[2017-08-09] MEDS ORDERED: HYDR-3516 PO (18:45)
--- NOTE | 2017-08-09 18:51 | HHI.PR ---
Subjective Remarks offers no new complaints Objective Vitals Vital Signs Date Time Temp Pulse Resp B/P (MAP) Pulse Ox O2 Delivery O2 Flow Rate FiO2 08/09/17 15:49 96.8 81 16 129/60 (83) 98 08/09/17 12:21 98.3 78 18 124/58 (80) 97 08/09/17 09:57 98 08/09/17 08:05 98.1 69 18 134/60 (84) 98 08/09/17 08:00 96 Room Air 21 08/09/17 05:08 98.0 74 14 158/84 (108) 95 08/09/17 02:30 Nasal Cannula 2.00 08/09/17 00:45 97.8 93 16 110/50 (70) 96 08/08/17 20:17 98.4 69 14 116/59 (78) 96 08/08/17 20:05 98.4 69 14 116/59 (78) 96 08/08/17 19:45 Room Air 08/09/17 08/09/17 08/10/17 15:00 23:00 07:00 Intake Total 600 ml Output Total 950 ml Balance -350 ml Intake Oral 600 ml Output Urine Total 950 ml # Voids 1 # Bowel Movements 0 Result Diagram: 08/09/17 0600 08/09/17 0600 Other Results Laboratory Tests Test 08/07/17 20:55 08/08/17 05:00 08/09/17 06:00 White Blood Count 14.0 TH/MM3 11.9 TH/MM3 9.9 TH/MM3 Red Blood Count 3.77 MIL/MM3 3.62 MIL/MM3 3.62 MIL/MM3 Hemoglobin 10.1 GM/DL 9.7 GM/DL 9.9 GM/DL Hematocrit 30.9 % 29.6 % 30.1 % Mean Corpuscular Volume 81.8 FL 81.9 FL 83.1 FL Mean Corpuscular Hemoglobin 26.8 PG 26.7 PG 27.3 PG Mean Corpuscular Hemoglobin Concent 32.8 % 32.6 % 32.9 % Red Cell Distribution Width 15.2 % 15.4 % 15.7 % Platelet Count 195 TH/MM3 180 TH/MM3 186 TH/MM3 Mean Platelet Volume 9.6 FL 9.6 FL 9.5 FL Neutrophils (%) (Auto) 74.1 % 72.9 % 65.8 % Lymphocytes (%) (Auto) 13.2 % 15.1 % 17.7 % Monocytes (%) (Auto) 11.4 % 10.3 % 12.5 % Eosinophils (%) (Auto) 0.9 % 1.1 % 3.3 % Basophils (%) (Auto) 0.4 % 0.6 % 0.7 % Neutrophils # (Auto) 10.4 TH/MM3 8.7 TH/MM3 6.5 TH/MM3 Lymphocytes # (Auto) 1.8 TH/MM3 1.8 TH/MM3 1.8 TH/MM3 Monocytes # (Auto) 1.6 TH/MM3 1.2 TH/MM3 1.2 TH/MM3 Eosinophils # (Auto) 0.1 TH/MM3 0.1 TH/MM3 0.3 TH/MM3 Basophils # (Auto) 0.1 TH/MM3 0.1 TH/MM3 0.1 TH/MM3 CBC Comment DIFF FINAL DIFF FINAL DIFF FINAL Differential Comment Prothrombin Time 31.4 SEC 22.5 SEC Prothromb Time International Ratio 3.1 RATIO 2.2 RATIO Blood Urea Nitrogen 18 MG/DL 17 MG/DL 15 MG/DL Creatinine 1.13 MG/DL 1.01 MG/DL 1.16 MG/DL Random Glucose 43 MG/DL 83 MG/DL 124 MG/DL Calcium Level 9.5 MG/DL 8.7 MG/DL 8.7 MG/DL Sodium Level 138 MEQ/L 138 MEQ/L 138 MEQ/L Potassium Level 3.4 MEQ/L 3.9 MEQ/L 4.2 MEQ/L Chloride Level 105 MEQ/L 107 MEQ/L 107 MEQ/L Carbon Dioxide Level 23.4 MEQ/L 23.7 MEQ/L 24.0 MEQ/L Anion Gap 10 MEQ/L 7 MEQ/L 7 MEQ/L Estimat Glomerular Filtration Rate 46 ML/MIN 52 ML/MIN 44 ML/MIN Magnesium Level 1.7 MG/DL Imaging Last Impressions Chest X-Ray 08/08/17 0600 Signed Impressions: Service Date/Time: Tuesday, August 08, 2017 08:23 - CONCLUSION: 1. Hyperinflation which can be seen with COPD. 2. No infiltrate. 3. Cardiomegaly. 4. Probable pleural scarring. Greg Alvarez MD Outpt CXR (08/07/17): - Patchy infiltrate in the right lung base, rule out pneumonia. There is otherwise some fibrotic appearing change throughout the lungs. The heart size is the upper limits of normal. Mild degenerative changes of scoliosis noted throughout the spine. Objective Remarks General: NAD Chest: Equal air movement bilaterally Cardiac: Irregular Abd: +BS, soft ND/NT Ext: No edema A/P Problem List: (1) Pneumonia ICD Codes: J18.9 - Pneumonia, unspecified organism Plan: - Pt is an 86 y/o female with chronic A. fib, HTN, hyperlipidemia, diabetes mellitus, and CKD stage 3 - [place] [facility] [place] with complaints of productive cough, congestion who had an outpt CXR on 08/07/17 that noted possible RLL pneumonia. Pt lives with a manufacturing maintenance technician who has also been sick recently - Her labs at admission noted elevated WBC count of 14 - Pt was started on IV Rocephin and Azithromycin for CAP - Pt was also given some IVF, pt eating better today, stop IVF on 08/08 - PT evaluated today and recommended SNF placement at the end of this hospitalization. - Case management is following for discharge planning. - Repeat CXR (08/09) minimal left lung base linear airspace disease consistent with atelectasis - Anticipate d/c to SNF tomorrow (2) CHRONIC ATRIAL FIBRILLATION ICD Codes: I48.2 - CHRONIC ATRIAL FIBRILLATION Status: Chronic Plan: - Pt was continued on Atenolol 25mg po daily and Coumadin - INR on 08/07 was 3.1 -> 08/09 2.2 (3) Diabetes ICD Codes: E11.9 - Type 2 diabetes mellitus without complications Status: Chronic Plan: - Amaryl 4mg po daily and Metformin 1000mg po BIDPC on hold due to low blood sugar and renal function - NovoLog SSI - Accu checks (4) CKD (chronic kidney disease) stage 3, GFR 30-59 ml/min ICD Codes: N18.3 - Chronic kidney disease, stage 3 (moderate) Status: Chronic Plan: - Labs are stable Assessment and Plan Patient examined. Assessment and plan formulated with Jessica Dillard PA-C. I agree with the above. Problem Qualifiers (1) Pneumonia: (2) Diabetes: Jessica Dillard Aug 09, 2017 18:51 Willis Harris DO Aug 14, 2017 10:45
--- NOTE | 2017-08-09 18:52 | HHI.DS ---
Discharge Summary Admission Date Aug 07, 2017 at 17:08 Discharge Date: Aug 09, 2017 Admitting Diagnosis pneumonia (1) Pneumonia Diagnosis: Principal ICD Codes: J18.9 - Pneumonia, unspecified organism (2) CHRONIC ATRIAL FIBRILLATION Diagnosis: Secondary ICD Codes: I48.2 - CHRONIC ATRIAL FIBRILLATION Status: Chronic (3) Diabetes Diagnosis: Secondary ICD Codes: E11.9 - Type 2 diabetes mellitus without complications Status: Chronic (4) CKD (chronic kidney disease) stage 3, GFR 30-59 ml/min Diagnosis: Secondary ICD Codes: N18.3 - Chronic kidney disease, stage 3 (moderate) Status: Chronic Consultants none Procedures none Brief History 86 y/o white female with hx atrial fib,dm who has had cough congestion fever for about 1 week and had outpatient chest xray showing pneumonia and admitted for IV antibiotics . 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 Labs are pending,will start on rocephin and zithromax. Patient also complains of generalized weakness ,chills. CBC/BMP: 08/09/17 0600 08/09/17 0600 Significant Findings Laboratory Tests Test 08/07/17 20:55 08/08/17 05:00 08/09/17 06:00 White Blood Count 14.0 TH/MM3 (4.0-11.0) 11.9 TH/MM3 (4.0-11.0) Red Blood Count 3.77 MIL/MM3 (4.00-5.30) 3.62 MIL/MM3 (4.00-5.30) 3.62 MIL/MM3 (4.00-5.30) Hemoglobin 10.1 GM/DL (11.6-15.3) 9.7 GM/DL (11.6-15.3) 9.9 GM/DL (11.6-15.3) Hematocrit 30.9 % (35.0-46.0) 29.6 % (35.0-46.0) 30.1 % (35.0-46.0) Mean Corpuscular Hemoglobin 26.8 PG (27.0-34.0) 26.7 PG (27.0-34.0) Neutrophils (%) (Auto) 74.1 % (16.0-70.0) 72.9 % (16.0-70.0) Monocytes (%) (Auto) 11.4 % (0.0-8.0) 10.3 % (0.0-8.0) 12.5 % (0.0-8.0) Neutrophils # (Auto) 10.4 TH/MM3 (1.8-7.7) 8.7 TH/MM3 (1.8-7.7) Monocytes # (Auto) 1.6 TH/MM3 (0-0.9) 1.2 TH/MM3 (0-0.9) 1.2 TH/MM3 (0-0.9) Prothrombin Time 31.4 SEC (9.8-11.6) 22.5 SEC (9.8-11.6) Creatinine 1.13 MG/DL (0.50-1.00) 1.01 MG/DL (0.50-1.00) 1.16 MG/DL (0.50-1.00) Random Glucose 43 MG/DL (74-106) 124 MG/DL (74-106) Potassium Level 3.4 MEQ/L (3.5-5.1) Estimat Glomerular Filtration Rate 46 ML/MIN (>89) 52 ML/MIN (>89) 44 ML/MIN (>89) Imaging Last Impressions Chest X-Ray 08/09/17 0600 Signed Impressions: Service Date/Time: Wednesday, August 09, 2017 05:17 - CONCLUSION: 1. Minimal left lung base linear airspace disease consistent with atelectasis. Sj Luz MD PE at Discharge General: NAD Chest: Equal air movement bilaterally Cardiac: Irregular Abd: +BS, soft ND/NT Ext: No edema Hospital Course Pneumonia - Pt is an 86 y/o female with chronic A. fib, HTN, hyperlipidemia, diabetes mellitus, and CKD stage 3 - She was admitted to [facility] [place] on 08/07/17 with complaints of productive cough, congestion who had an outpt CXR on 08/07/17 that noted possible RLL pneumonia. Pt lives with a heat engineering teacher who has also been sick recently - Her labs at admission noted elevated WBC count of 14 - Pt was started on IV Rocephin and Azithromycin for CAP - Pt was also given some IVF, pt eating better today, stop IVF on 08/08 - PT evaluated today and recommended SNF placement at the end of this hospitalization. - Case management is following for discharge planning. - Repeat CXR (08/09) minimal left lung base linear airspace disease consistent with atelectasis - Anticipate d/c to SNF tomorrow CHRONIC ATRIAL FIBRILLATION - Pt was continued on Atenolol 25mg po daily and Coumadin - INR on 08/07 was 3.1 -> 08/09 2.2 Diabetes - Amaryl 4mg po daily on hold - Metformin 1000mg po BIDPC on hold due to renal function - NovoLog SSI - Accu checks CKD (chronic kidney disease) stage 3, GFR 30-59 ml/min - Labs are stable Pt Condition on Discharge: Stable Discharge Disposition: Discharge to SNF Discharge Instructions DIET: Follow Instructions for: Diabetic Diet Activities you can perform: Regular-No Restrictions Follow up Referrals: PCP Follow-up - [address] iKm New Medications: Insulin Aspart Inj (Novolog Inj) 1,000 Unit/10 Ml Vial 1-9 UNITS SQ ACHS for Blood Sugar Management, #10 ML 0 Refills Max dose at bedtime:( )units; sugars less than 70,(0)units; sugars 150-199,(1) unit; sugars 200-249,(3) units; sugars 250-299,(5) units; sugars 300-349,(7) units; sugars greater than 349,(9) units Levofloxacin (Levofloxacin) 500 Mg Tablet 500 MG PO DAILY for antibiotic, #5 TAB 0 Refills [guaiFEN-COD 200-20 MG/10ML LIQ] () 10 ML SYRP 10 ML PO Q4H PRN for COUGH, #1 0 Refills Dispense 200ml Continued Medications: Ascorbic Acid ER (Vitamin C ER) 500 Mg Juliette 500 MG PO DAILY for Nutritional Supplement, TAB 0 Refills Atenolol (Atenolol) 25 Mg Tab 25 MG PO DAILY for Blood Pressure Management, #30 TAB Calcium Carbonate-Cholecalciferol (Calcium 600 with Vitamin D) 600-400 mg-Unit Tab 1 TAB PO DAILY for Calcium Supplement, TAB 0 Refills Hydrocodone-Acetaminophen (Hydrocodone-Acetaminophen) 5-325 mg Tab 1 TAB PO Q6HR for Pain Management for 5 Days, #15 TAB 0 Refills (This prescription has been renewed) Lisinopril (Lisinopril) 5 Mg Tab 5 MG PO DAILY for Blood Pressure Management, #30 TAB 0 Refills Lovastatin (Lovastatin) 20 Mg Tab 20 MG PO DAILY for Cholesterol Management, #30 TAB 0 Refills Multiple Vitamin (Multiple Vitamin) 1 Tab 1 TAB PO DAILY for Nutritional Supplement, TAB 0 Refills Multiple Vitamins W/ Minerals (Ocuvite) 1 Tab 1 TAB PO DAILY for Nutritional Supplement, TAB 0 Refills Omeprazole (Omeprazole) 20 Mg Tab 20 MG PO DAILY, #30 TAB 0 Refills Sertraline (Sertraline) 25 Mg Tab 25 MG PO DAILY, #30 TAB 0 Refills Warfarin (Coumadin) 2 Mg Tab 2 MG PO DAILY for Prevent Blood Clot, #30 TAB 0 Refills Discontinued Medications: Albiglutide 4-Pack Inj (Tanzeum 4-Pack Inj) 30 Mg Pfpen 30 MG SQ Q7D, #4 PEN Glimepiride (Glimepiride) 4 Mg Tab 4 MG PO DAILY for Blood Sugar Management, #30 TAB 0 Refills Take with breakfast or first main meal Metformin (Metformin) 1,000 Mg Tab 1000 MG PO BIDPC for Blood Sugar Management, #60 TAB 0 Refills With meals Additional Information CBC, BMP, mag and INR weekly in Monday Patient examined. Assessment and plan formulated with Jessica Dillard PA-C. I agree with the above. Jessica Dillard Aug 09, 2017 18:52 Willis Harris DO Aug 14, 2017 10:46
[2017-08-09] MEDS ORDERED: NOVOLOGP2 SQ (18:57)
[2017-08-09] MEDS: cefTRIAXone INJ 1,000 MG in SODIUM CHLORIDE 0.9% INJ 100 ML IV SCH (21:14)
[2017-08-09] MEDS: AZITHROMYCIN INJ 500 MG in SODIUM CHLOR 0.9% 250 ML INJ 250 ML IV SCH (21:14)
[2017-08-10 04:00] VITALS: BP 141/62; PULSE 77; RESP 18; TEMP 98; O2SAT 100
[2017-08-10] MEDS: ACETAMINOPHEN/HYDROcodone 325 MG/5 MG TAB PO SCH ×3 (05:57→17:34)
[2017-08-10] MEDS: INSULIN ASPART SUPPLEMENTAL SCALE SQ SCH ×3 (08:00→17:00)
[2017-08-10 08:05] VITALS: BP 122/67; PULSE 74; RESP 18; TEMP 98.1; O2SAT 99
[2017-08-10] MEDS: PRAVASTATIN SOD 20 MG TAB PO SCH (09:02)
[2017-08-10] MEDS: LISINOPRIL 5 MG TAB PO SCH (09:02)
[2017-08-10] MEDS: DOCUSATE SODIUM 50 MG/SENNA 8.6 MG TAB PO SCH (09:02)
[2017-08-10] MEDS: MULTIVITAMIN TAB PO SCH (09:02)
[2017-08-10] MEDS: MULTIVITAMIN-OPHTHALMIC 1 TAB PO SCH (09:02)
[2017-08-10] MEDS: PANTOPRAZOLE SOD 20 MG DELAYED RELEASE TAB PO SCH (09:02)
[2017-08-10] MEDS: ATENOLOL 25 MG TAB PO SCH (09:02)
[2017-08-10] MEDS: CALCIUM/VITAMIN D 250 MG/125 U TAB PO SCH (09:03)
[2017-08-10] MEDS: SERTRALINE HCL 50 MG TAB PO SCH (09:03)
[2017-08-10] MEDS: SODIUM CHLORIDE 0.9% FLUSH 10 ML FLUSH IV FLUSH SCH (09:03)
[2017-08-10 12:05] VITALS: BP 111/56; PULSE 60; RESP 18; TEMP 98.1; O2SAT 97
[2017-08-10 16:05] VITALS: BP 128/60; PULSE 84; RESP 18; TEMP 98.6; O2SAT 97
== END 2017-08-10 18:00 | DRG 195 ==
LOC: N04B 17:08
PROVIDERS: ADMIT Hospitalist; ATTEND Hospitalist
DX: J18.9 Pneumonia, unspecified organism (principal); E11.22 Type 2 diabetes mellitus with diabetic chronic kidney disease; E11.649 Type 2 diabetes mellitus with hypoglycemia without coma; I48.2 Chronic atrial fibrillation; E78.5 Hyperlipidemia, unspecified; I12.9 Hypertensive chronic kidney disease with stage 1 through stage 4 chronic kidney disease, or unspecified chronic kidney disease; N18.3 Chronic kidney disease, stage 3 (moderate); M19.90 Unspecified osteoarthritis, unspecified site; F32.9 Major depressive disorder, single episode, unspecified; Z79.84 Long term (current) use of oral hypoglycemic drugs
CPT/HCPCS: 71045; 71046; 80048; 82948; 83735; 85025; 85610; 87040; 87086; 87804; J0456; J0696; J1815; J7050

== ENCOUNTER 2018-05-13 07:29 | Inpatient (IN) ==
--- NOTE | 2018-05-13 07:39 | ED ---
HPI General Chief complaint: Nausea/Vomiting/Diarrhea Stated complaint: atraumatic bleeding/evac Time Seen by Provider: 05/13/18 07:30 Source: patient and EMS Mode of arrival: EMS History of Present Illness HPI narrative: Post esophageal stent recent unable to tolerate p.o. Onset (ago): day(s) Radiation: non-radiation Severity: moderate Quality: dull Pain Consistency: now resolved Relieving factors: none Exacerbating factors: eating Associated symptoms: Reports denies other symptoms Related Data Home Medications Medication Instructions Recorded Confirmed atenolol 25 mg PO DAILY 05/11/18 05/13/18 glimepiride 4 mg PO BID 05/11/18 05/13/18 hydrocodone-acetaminophen 2 tab PO Q4-6H PRN 05/11/18 05/13/18 lisinopril 5 mg PO DAILY 05/11/18 05/13/18 lovastatin 20 mg PO DAILY 05/11/18 05/13/18 metformin 1,000 mg PO BID 05/11/18 05/13/18 warfarin 4 mg PO DAILY 05/11/18 05/13/18 Allergies Allergy/AdvReac Type Severity Reaction Status Date / Time gluten Allergy Severe DIARRHEA, Verified 05/11/18 08:15 STOMACH UPSET lactose AdvReac Mild DIARRHEA Verified 05/11/18 08:15 FRUIT Allergy Severe DIARRHEA, Uncoded 05/11/18 08:15 GI UPSET, HIVES Review of Systems ROS: all other systems reviewed are negative Constitutional Denies fever(s) Gastrointestinal Denies abdominal pain, Denies melena and Reports nausea PMFSH Medical History Medical History A-fib (Acute) Cataract fragments in both eyes following surgery (Acute) Depression (Acute) Diabetes (Acute) Esophageal cancer (Acute) HTN (hypertension) (Acute) Hyperlipidemia (Acute) Pneumonia (Acute) Wears glasses (Acute) Surgical History Surgical History History of hip surgery (Acute) History of tubal ligation (Acute) Social History Social History Substance History: No History of Abuse Second Hand Smoke Exposure: No Smoking Status: Never smoker Tobacco Type: Cigarettes How Often Do You Have a Drink Containing Alcohol: 2 to 4 times a month Recent Travel in [facility] within the Last 8 Weeks: No Recent Out of Country Travel within the Last 8 Weeks: No Exam Narrative Exam Narrative: GENERAL: Uncomfortable not actively vomiting. Not drooling clear nonlabored sentences SKIN: Focused skin assessment warm/dry. HEAD: Atraumatic. Normocephalic. EYES: Pupils equal and round. No scleral icterus. No injection or drainage. ENT: No nasal bleeding or discharge. Mucous membranes pink and moist. NECK: Trachea midline. No JVD. CARDIOVASCULAR: Regular rate and rhythm. RESPIRATORY: No accessory muscle use. Clear to auscultation. Breath sounds equal bilaterally. GASTROINTESTINAL: Abdomen soft, non-tender, nondistended. MUSCULOSKELETAL: No obvious deformities. NEUROLOGICAL: Awake and alert. Motor grossly within normal limits. Normal speech. PSYCHIATRIC: Appropriate mood and affect; insight and judgment normal. Course Reevaluation(s) Reevaluation #1: Discussed with x-ray tech explained to me md states will need to transport patient to [facility] for diagnostic study pending transfer Time: 08:51 Reevaluation #2: d/w kimo ed , [place] will call back , pending insurance/hospice [id number] kimo leblanc to admit / assume care. no signs of acute airway compromise likely collapsed esophageal stent, recent procedure Time: 09:01 Initial Documented Vital Signs Temperature 97.7 F 05/13/18 07:51 Pulse Rate 78 05/13/18 07:51 Respiratory Rate 18 05/13/18 07:51 Blood Pressure 140/75 05/13/18 07:51 Pulse Oximetry 99 05/13/18 07:51 Last Documented Vital Signs Temperature 97.7 F 05/13/18 07:51 Pulse Rate 68 05/13/18 09:07 Respiratory Rate 18 05/13/18 09:07 Blood Pressure 111/81 05/13/18 09:07 Pulse Oximetry 99 05/13/18 09:07 Medical Decision Making [facility] Narrative Medical Screen Exam Complete: Yes Emergency Medical Condition: Yes Lab Data Result diagrams: 05/13/18 07:45 05/13/18 07:45 Lab Results 05/13/18 05/13/18 Range/Units 07:45 07:45 WBC 13.4 H (4.0-11.0) th/mm3 RBC 4.29 (4.00-5.30) mil/mm3 Hgb 11.9 (11.6-15.3) gm/dL Hct 36.3 (35.0-46.0) % MCV 84.6 (80.0-100.0) fL MCH 27.6 (27.0-34.0) pg MCHC 32.7 (32.0-36.0) % RDW 15.4 (11.6-17.2) % Plt Count 206 (150-450) th/mm3 MPV 12.0 H (7.0-11.0) fL Sodium 139 (136-145) meq/L Potassium 3.9 (3.5-5.1) meq/L Chloride 101 (98-107) meq/L Carbon Dioxide 22.0 (21.0-32.0) meq/L Anion Gap 16 H (5-15) meq/L BUN 35 H (7-18) mg/dL Creatinine 1.40 H (0.50-1.00) mg/dL Estimated GFR 36 L (>89) mL/min Random Glucose 388 H (74-106) mg/dL Calcium 9.0 (8.5-10.1) mg/dL Imaging Data Radiologist's impression: Chest X-Ray 05/13/18 07:33 CONCLUSION: No focal or acute intrathoracic disease. Stable examination. Discharge Plan Discharge Disposition Patient Disposition: ED Admit(ED Internal Use Only) Discharge Condition Condition: Stable Discharge Details Diagnosis: Esophageal cancer Physicians Team ED Provider: Jurgen English Primary Care Provider: Chucho Kim Rxs /Orders / Referrals /Forms Prescriptions: No Action hydrocodone-acetaminophen 5-325 mg Tablet 2 tab PO Q4-6H PRN (Reason: Pain) RF: 0 atenolol 25 mg Tablet 25 mg PO DAILY RF: 0 warfarin 4 mg Tablet 4 mg PO DAILY RF: 0 metformin 1,000 mg Tablet 1,000 mg PO BID RF: 0 glimepiride 4 mg Tablet 4 mg PO BID RF: 0 lisinopril 5 mg Tablet 5 mg PO DAILY RF: 0 lovastatin 20 mg Tablet 20 mg PO DAILY RF: 0 Discharge Interventions Interventions: Vital Signs Last Done: 05/13/18 09:07 Status ED Status: With Doctor
[2018-05-13 07:55] LABS: Hematocrit 36.3 % (35.0-46.0); Hemoglobin 11.9 gm/dL (11.6-15.3); Mean Corpuscular HGB Conc 32.7 % (32.0-36.0); Mean Corpuscular Hemoglobin 27.6 pg (27.0-34.0); Mean Corpuscular Volume 84.6 fL (80.0-100.0); Platelet Count 206 th/mm3 (150-450); Red Blood Count 4.29 mil/mm3 (4.00-5.30); Red Cell Distribution Width 15.4 % (11.6-17.2); White Blood Count 13.4 th/mm3 (4.0-11.0)
[2018-05-13 08:04] LABS: Potassium 3.9 meq/L (3.5-5.1)
--- NOTE | 2018-05-13 08:13 | XR ---
EXAM DATE: 05/13/2018 8:09 AM EST AGE/SEX: 87 years / Female INDICATIONS: Nausea, vomiting, esophageal stent placed on Monday, chest pain CLINICAL DATA: This is the patient's initial encounter. Patient reports that signs and symptoms have been present for 2 days and indicates a pain score of 7/10. MEDICAL/SURGICAL HISTORY: Carcinoma, esophageal. . esophageal stent [place]PAR[place] [facility] [place], 08/09/[place]. . FINDINGS: A single AP view of the chest demonstrates the lungs to be symmetrically aerated without evidence of mass, infiltrate or effusion. There is hyperaeration of the lung raphael. The heart size is upper limi ts of normal.. Osseous structures are intact. No significant changes. CONCLUSION: No focal or acute intrathoracic disease. Stable examination. Electronically signed by: Dexter Shipman MD 05/13/2018 8:12 AM EST
[2018-05-13] MEDS ORDERED: Promethazine 25 MG Supp RECTAL ONE (10:54)
[2018-05-13] MEDS ORDERED: Acetaminophen 325 MG Tablet PO PRN (11:42)
[2018-05-13] MEDS ORDERED: Dextrose 50% in Water 50 ML Vial IV.PUSH PRN (11:53)
--- NOTE | 2018-05-13 11:57 | P.HPIM ---
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 Patient has had significant weight loss in the last 2 months. Patient recently established with oncology, Dr. Lei Ordonez. Patient felt NOT to be a candidate for esophagectomy. Patient declined treatment by either chemotherapy or radiation. Patient underwent placement of esophageal stent by Dr. Balwinder Kahn on . Patient presented to the ER with complaint of 2 days of intractable nausea and vomiting. Patient had elected for hospice services with [facility]. However, patient's nausea and vomiting did not respond to outpatient treatment. Patient and drum filler became exhausted. Patient was directed to the ER for further evaluation and treatment. Admission requested for symptom management. PMH: 1) diabetes mellitus, type II 2) heart disease, unspecified 3) osteoporosis 4) esophageal cancer, diagnosed April 2018 5) hypertension 6) osteoarthritis PSH: 1) EGD 2) pacemaker (2016) 3) cataract surgery 4) right hip surgery 5) colonoscopy 2011 FHX: - noncontributory SHX: - - Originally from the [facility] - Retired OR nurse - Former smoker - Occasional alcoholic beverage - No illicit street drugs ALL: NKDA Primary Care Physician: Chucho Kim MD Diagnosis (1) Intractable nausea and vomiting: (2) DM2 (diabetes mellitus, type 2): Inpatient Certification Inpatient Certification: I certify that the inpatient services were ordered in accordance with Medicare regulations governing the order. This includes certification that hospital inpatient services are reasonable and necessary and in the case of services not specified as inpatient-only under 42 CFR 419.22(n), that they are appropriately provided as inpatient services in accordance to with the 2-midnight benchmark under 43 CFR 412.3(e) Estimated Total Length of Stay (Days): 3 Plans for Post Hospital Care: Not yet determined Medications and Allergies Allergies Allergy/AdvReac Type Severity Reaction Status Date / Time gluten Allergy Severe DIARRHEA, Verified 05/11/18 08:15 STOMACH UPSET lactose AdvReac Mild DIARRHEA Verified 05/11/18 08:15 FRUIT Allergy Severe DIARRHEA, Uncoded 05/11/18 08:15 GI UPSET, HIVES Home Medications Medication Instructions Recorded Confirmed Type atenolol 25 mg PO DAILY 05/11/18 05/13/18 History glimepiride 4 mg PO BID 05/11/18 05/13/18 History hydrocodone-acetaminophen 2 tab PO Q4-6H PRN 05/11/18 05/13/18 History lisinopril 5 mg PO DAILY 05/11/18 05/13/18 History lovastatin 20 mg PO DAILY 05/11/18 05/13/18 History metformin 1,000 mg PO BID 05/11/18 05/13/18 History warfarin 4 mg PO DAILY 05/11/18 05/13/18 History Active Medications: Active Medications Acetaminophen (Tylenol) 650 mg PO Q4H PRN PRN Reason: Temp > 100.4 Al Hydroxide/Mg Hydroxide (Milk Of Nima Vo) 30 ml PO Q12H PRN PRN Reason: Mild Constipation Dextrose (D50w Vial) 50 ml IV.PUSH UNSCH PRN PRN Reason: PER HYPOGLYCEMIA PROTOCOL Glucagon (Glucagon Inj) 1 mg OTHER PRN PRN PRN Reason: for Hypoglycemia Protocol Potassium Chloride 10 meq/ (Sodium Chloride) 1,005 mls @ 84 mls/hr IV.CONT .[id number] [facility] Insulin Aspart (Novolog Insulin Correctional Sugar Inj) 0 unit SQ ACHS [facility]; Protocol Ondansetron HCl (Zofran Inj) 4 mg IV.PUSH Q6H PRN PRN Reason: NAUSEA OR VOMITING Senna/Docusate Sodium (Jennifer-Colace) 1 tab PO BID [facility] Sodium Chloride (Ns Flush) 2 ml IV.FLUSH BID [facility] Sodium Chloride (Ns Flush) 2 ml IV.FLUSH PRN PRN PRN Reason: FLUSH AFTER USING IV ACCESS Physical Exam Vital signs: Last Vital Signs Temp 97.7 F 05/13/18 07:51 Pulse 84 05/13/18 11:47 Resp 18 05/13/18 11:47 BP 138/58 L 05/13/18 11:47 Pulse Ox 96 05/13/18 11:47 Narrative: GENERAL: This is a well-nourished, well-developed patient, in no apparent distress. CARDIOVASCULAR: Regular rate and rhythm without murmurs, gallops, or rubs. RESPIRATORY: Clear to auscultation. Breath sounds equal bilaterally. No wheezes , rales, or rhonchi. GASTROINTESTINAL: Abdomen soft, non-tender, nondistended. Normal active bowel sounds MUSCULOSKELETAL: Extremities without clubbing, cyanosis, or edema. NEURO: Alert & Oriented x4 to person, place, time, situation. Moves all ext x4 Results Labs CBC & Chem 7: 05/14/18 06:54 12 06:54 Caprini VTE Risk Assessment Caprini Risk Assessment Model: Point Value = 1 Point Value = 2 Point Value = 3 Point Value = 5 Age 41-60 Minor surgery BMI > 25 kg/m2 Swollen legs Varicose veins or History of unexplained or recurrent spontaneous Oral contraceptives or hormone replacement Sepsis (< 1 month) Serious lung disease, including pneumonia (< 1 month) Abnormal pulmonary function Acute myocardial infarction Congestive heart failure (< 1 month) History of inflammatory bowel disease Medical patient at bed rest Age 61-74 Arthroscopic surgery Major open surgery (> 45 min) Laparoscopic surgery (> 45 min) Malignancy Confined to bed (> 72 hours) Immobilizing plaster cast Central venous access Age >= 75 History of VTE Family history of VTE Factor V Leiden Prothrombin [id number] Lupus anticoagulant Anticardiolipin antibodies Elevated serum homocysteine Heparin-induced thrombocytopenia Other congenital or acquired thrombophilia Stroke (< 1 month) Elective arthroplasty Hip, pelvis, or leg fracture Acute spinal cord injury (< 1 month) Prophylaxis Regimen: Total Risk Factor Score Risk Level Prophylaxis Regimen 0-1 Low Early ambulation 2 Moderate Order ONE of the following: *Sequential Compression Device (SCD) *Heparin 5000 units SQ BID 3-4 Higher Order ONE of the following medications: *Heparin 5000 units SQ TID *Enoxaparin/Lovenox 40 mg SQ daily (WT < 150 kg, CrCl > 30 mL/min) *Enoxaparin/Lovenox 30 mg SQ daily (WT < 150 kg, CrCl > 10-29 mL/min) *Enoxaparin/Lovenox 30 mg SQ BID (WT < 150 kg, CrCl > 30 mL/min) AND/OR *Sequential Compression Device (SCD) 5 or more Highest Order ONE of the following medications: *Heparin 5000 units SQ TID (Preferred with Epidurals) *Enoxaparin/Lovenox 40 mg SQ daily (WT < 150 kg, CrCl > 30 mL/min) *Enoxaparin/Lovenox 30 mg SQ daily (WT < 150 kg, CrCl > 10-29 mL/min) *Enoxaparin/Lovenox 30 mg SQ BID (WT < 150 kg, CrCl > 30 mL/min) AND *Sequential Compression Device (SCD) Assessment and Plan Assessment (1) Intractable nausea and vomiting: Code(s): R11.2 - Nausea with vomiting, unspecified Status: Acute (2) DM2 (diabetes mellitus, type 2): Code(s): E11.9 - Type 2 diabetes mellitus without complications Status: Acute Plan 1) Intractable Nausea and Vomiting 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 Patient has had significant weight loss in the last 2 months. Patient recently established with oncology, Dr. Lei Ordonez. Patient felt NOT to be a candidate for esophagectomy. Patient declined treatment by either chemotherapy or radiation. Patient underwent placement of esophageal stent by Dr. Balwinder Kahn on . Patient presented to the ER with complaint of 2 days of intractable nausea and vomiting. Patient had elected for hospice services with [facility]. However, patient's nausea and vomiting did not respond to outpatient treatment. Patient and drum filler became exhausted. Patient was directed to the ER for further evaluation and treatment. Admission requested for symptom management. - Pt with dehydration and BIPIN upon admission - BUN 35 (05/13) - Creatinine 1.40 (05/13) - Gastrograffin Swallow study (05/13) Distal esophageal stent is noted in position. There is no evidence of obstruction to the flow of Gastrografin. Gastrografin passes freely into the stomach.CONCLUSION: No evidence of esophageal obstruction with free flow of Gastrografin through the distal esophageal stent. - IVFs - repeat labs in AM - Case d/w pt at bedside and drum filler (by phone). Pt is A&Ox3 - Pt interested in symptom mgmt and transfer to hospice care center - DVT prophylaxis with SCDs - supportive care
[2018-05-13] MEDS: Potassium Chloride Inj 10 MEQ in Sodium Chloride 0.45 % Inj 1,000 ML IV.CONT SCH (13:33)
[2018-05-13] MEDS: HYDROmorphone PF Inj 0.5 MG/0.5 ML Syringe IV.PUSH PRN ×2 (13:40→18:08)
[2018-05-13] MEDS: Insulin NovoLOG Aspart Correctional Sugar Inj SQ SCH ×3 (13:41→20:52)
[2018-05-13] MEDS ORDERED: Diatrizoate Meglum/Diatrizoate Sod Liq 120 ML Bottle (for RAD diag) PO ONE (14:15)
[2018-05-13] MEDS: Senna/Docusate Sodium 8.6/50 MG Tablet PO SCH (20:44)
[2018-05-14] MEDS: Potassium Chloride Inj 10 MEQ in Sodium Chloride 0.45 % Inj 1,000 ML IV.CONT SCH (03:23)
[2018-05-14] MEDS: HYDROmorphone PF Inj 0.5 MG/0.5 ML Syringe IV.PUSH PRN ×2 (03:46→15:21)
[2018-05-14 07:57] LABS: Baso % (Auto) 0.1 % (0.0-2.0); Eos % (Auto) 0.1 % (0.0-4.0); Hematocrit 36.6 % (35.0-46.0); Hemoglobin 11.9 gm/dL (11.6-15.3); Lymph # (Auto) 1.2 th/mm3 (1.0-4.8); Lymph % (Auto) 11.5 % (9.0-44.0); Mean Corpuscular HGB Conc 32.6 % (32.0-36.0); Mean Corpuscular Hemoglobin 28.3 pg (27.0-34.0); Mean Corpuscular Volume 86.8 fL (80.0-100.0); Mono # (Auto) 1.6 th/mm3 (0.0-0.9); Mono % (Auto) 14.3 % (0.0-8.0); Platelet Count 138 th/mm3 (150-450); Red Blood Count 4.22 mil/mm3 (4.00-5.30); Red Cell Distribution Width 16.4 % (11.6-17.2); White Blood Count 10.8 th/mm3 (4.0-11.0)
[2018-05-14 08:07] LABS: INR 1.2 Ratio; Prothrombin Time 12.3 sec (9.8-11.6)
[2018-05-14 08:13] LABS: Calcium 8.8 mg/dL (8.5-10.1); Carbon Dioxide 26.5 meq/L (21.0-32.0); Potassium 3.4 meq/L (3.5-5.1)
--- NOTE | 2018-05-14 09:35 | P.PNIM ---
Subjective Interval history: Pt feels better from admission. However, pt continuing to require IV zofran for control of nausea. Physical Exam Vital signs: Last Vital Signs Temp 97.8 F 05/14/18 04:00 Pulse 77 05/14/18 04:00 Resp 17 05/14/18 04:00 BP 149/84 H 05/14/18 04:00 Pulse Ox 100 05/14/18 04:00 Narrative: GENERAL: This is a well-nourished, well-developed patient, in no apparent distress. CARDIOVASCULAR: Regular rate and rhythm without murmurs, gallops, or rubs. RESPIRATORY: Clear to auscultation. Breath sounds equal bilaterally. No wheezes , rales, or rhonchi. GASTROINTESTINAL: Abdomen soft, non-tender, nondistended. Normal active bowel sounds MUSCULOSKELETAL: Extremities without clubbing, cyanosis, or edema. NEURO: Alert & Oriented x4 to person, place, time, situation. 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 Patient has had significant weight loss in the last 2 months. Patient recently established with oncology, Dr. Lei Ordonez. Patient felt NOT to be a candidate for esophagectomy. Patient declined treatment by either chemotherapy or radiation. Patient underwent placement of esophageal stent by Dr. Balwinder Kahn on . Patient presented to the ER with complaint of 2 days of intractable nausea and vomiting. Patient had elected for hospice services with [facility]. However, patient's nausea and vomiting did NOT respond to outpatient treatment. Patient and director child development center became exhausted. Patient was directed to the ER for further evaluation and treatment. Admission requested for symptom management. - Pt with dehydration and BIPIN upon admission - BUN 35 (2), 43 (/) - Creatinine 1.40 (05/13), 1.12 - Gastrograffin Swallow study (05/13) Distal esophageal stent is noted in position. There is no evidence of obstruction to the flow of Gastrografin. Gastrografin passes freely into the stomach.CONCLUSION: No evidence of esophageal obstruction with free flow of Gastrografin through the distal esophageal stent. - IVFs - on 05/13/18, Case d/w pt at bedside and director child development center (by phone). Pt is A&Ox3 - Pt continues to request hospice services and transfer to hospice care center. - Hospice Care center would be reasonable. Pt continues to require IV zofran for control of nausea. Also, is quite weak and requires nursing care for ADLs. - If pt is able to be stabilized at Hospice Care Center, then could transfer from Care Center back to her home with Hospice services. - Consult [facility]. - DVT prophylaxis with SCDs - supportive care Progress Note: Quality VTE Deep Vein Thrombosis/Pulmonary Embolism Present on Admission: No
[2018-05-14] MEDS: Insulin NovoLOG Aspart Correctional Sugar Inj SQ SCH ×2 (09:58→13:39)
[2018-05-14] MEDS: Senna/Docusate Sodium 8.6/50 MG Tablet PO SCH (10:00)
[2018-05-14] MEDS ORDERED: Hold Metfromin until further notice OTHER ONE (12:37)
[2018-05-14] MEDS ORDERED: Diatrizoate Meglum/Diatrizoate Sod Liq 9 ML UDC PO ONE (12:45)
--- NOTE | 2018-05-14 13:12 | P.CONGI ---
History of Present Illness Consult date: 05/14/18 Consult reason: Esophageal mass Dysphasia Chief complaint: Esophageal Cancer History of Present Illness: This patient is an 87-year-old female with history of esophageal cancer. Patient is post esophageal stent on 05/11/2018. She presented to [facility] with recent onset of inability to tolerate anything p.o. Patient unable to speak clearly but is noted to have frequent bouts of nausea. History of atrial fibrillation on warfarin. Patient states last dose of warfarin greater than 2 weeks ago. Patient denies any coughing or choking with meals or liquids. She states p.o. intake feels stuck in her chest-patient points to epigastric area. Patient also endorses increasing acid reflux symptoms and with heartburn. Our service has been consulted to evaluate patient's increasing dysphagia. Review of Systems All other systems reviewed negative except as stated in HPI PMFSH - History History Provided By: Friend - Medical History Medical History: Medical History (Last Reviewed 05/14/18 @ 09:22 by Megan Greene) A-fib Cataract fragments in both eyes following surgery Depression Diabetes Esophageal cancer HTN (hypertension) Hyperlipidemia Pneumonia Wears glasses - Surgical History Surgical History: Surgical History (Last Reviewed 05/14/18 @ 09:22 by Megan Greene) History of hip surgery History of tubal ligation - Tobacco History Second Hand Smoke Exposure: Yes Tobacco Use In Past 30 Days: No Smoking Status: Former smoker Tobacco Type: Cigarettes - Alcohol History How Often Do You Have a Drink Containing Alcohol: 2 to 3 times a week - Substance Use History Substance History: No History of Abuse - Travel History Recent Travel in the [place] Within the Last 8 Weeks: No Recent Travel Out of the Country Within the Last 8 Weeks: No - Immunization History Tetanus Immunization: <5 Years Hx Influenza Vaccine This Season: Yes Medications and Allergies Active Medications: Active Medications Acetaminophen (Tylenol) 650 mg PO Q4H PRN PRN Reason: Temp > 100.4 Al Hydroxide/Mg Hydroxide (Milk Of Magnesia Liq) 30 ml PO Q12H PRN PRN Reason: Mild Constipation Dextrose (D50w Vial) 50 ml IV.PUSH UNSCH PRN PRN Reason: PER HYPOGLYCEMIA PROTOCOL Glucagon (Glucagon Inj) 1 mg OTHER PRN PRN PRN Reason: for Hypoglycemia Protocol Hydromorphone HCl (Dilaudid Pf Inj) 0.5 mg IV.PUSH Q4H PRN PRN Reason: PAIN 6-10;IF UNABLE TO TAKE PO Last Admin: 05/14/18 03:46 Dose: 0.5 mg Insulin Aspart (Novolog Insulin Correctional Sugar Inj) 0 unit SQ ACHS [facility]; Protocol Last Admin: 05/14/18 09:58 Dose: 2 unit Ondansetron HCl (Zofran Inj) 8 mg IV.PUSH Q4H [facility] Senna/Docusate Sodium (Jennifer-Colace) 1 tab PO BID [facility] Last Admin: 05/14/18 10:00 Dose: Not Given Sodium Chloride (Ns Flush) 2 ml IV.FLUSH BID [facility] Last Admin: 05/14/18 10:01 Dose: 2 ml Sodium Chloride (Ns Flush) 2 ml IV.FLUSH PRN PRN PRN Reason: FLUSH AFTER USING IV ACCESS Last Admin: 05/14/18 09:51 Dose: 2 ml Allergies Allergy/AdvReac Type Severity Reaction Status Date / Time gluten Allergy Severe DIARRHEA, Verified 05/11/18 08:15 STOMACH UPSET lactose AdvReac Mild DIARRHEA Verified 05/11/18 08:15 FRUIT Allergy Severe DIARRHEA, Uncoded 05/11/18 08:15 GI UPSET, HIVES Home Medications Medication Instructions Recorded Confirmed Type atenolol 25 mg PO DAILY 05/11/18 05/13/18 History glimepiride 4 mg PO BID 05/11/18 05/13/18 History hydrocodone-acetaminophen 2 tab PO Q4-6H PRN 05/11/18 05/13/18 History lisinopril 5 mg PO DAILY 05/11/18 05/13/18 History lovastatin 20 mg PO DAILY 05/11/18 05/13/18 History metformin 1,000 mg PO BID 05/11/18 05/13/18 History warfarin 4 mg PO DAILY 05/11/18 05/13/18 History Exam Vital signs: Vital Signs 05/13/18 16:00 05/13/18 16:44 05/13/18 20:00 Temperature 97.6 F 97.9 F Pulse Rate 90 88 Respiratory Rate 16 16 16 Blood Pressure 104/56 L 118/88 Pulse Oximetry 96 100 05/14/18 00:00 05/14/18 04:00 Temperature 98 F 97.8 F Pulse Rate 86 77 Respiratory Rate 15 17 Blood Pressure 117/59 L 149/84 H Pulse Oximetry 99 100 Intake & Output 05/13/18 05/14/18 05/14/18 18:59 06:59 18:59 Intake Total 1545 / 1545 Output Total 150 / 150 Balance -150 / -150 1545 / 1545 Weight 61.235 kg 62 kg Intake: IV 1005 / 1005 KCl Inj 10 MEQ In 1/2 Normal 1005 / 1005 Saline Inj 1,000 ML @ 84 mls/hr IV.CONT .[id number] [facility] Rx#: [id number] Oral 540 / 540 Output: Emesis 150 / 150 Other: # Voids 2 Date of Last Bowel Movement 05/14/18 # Bowel Movements 3 - Constitutional mild distress, chronically ill appearing - Routine HEENT Exam Head: Present: normocephalic - Routine Respiratory Exam Present: CTA bilaterally - Routine Abdominal Exam Present: soft, normoactive bowel sounds. Absent: tenderness, distended, guarding, firm - Routine Extremities Exam Present: pulses intact. Absent: edema - Routine Skin Exam Present: dry, alopecia - Routine Neurological Exam Present: alert - Routine Psychiatric Exam Present: normal affect, cooperative Results - Labs CBC & Chem 7: 05/14/18 06:54 05/14/18 06:54 Labs: Laboratory Results - last 24 hr 05/13/18 05/13/18 05/14/18 12:51 20:45 03:45 WBC RBC Hgb Hct MCV MCH MCHC RDW Plt Count MPV Neut % (Auto) Lymph % (Auto) Woodson % (Auto) Eos % (Auto) Baso % (Auto) Neut # (Auto) Lymph # (Auto) Woodson # (Auto) Eos # (Auto) Baso # (Auto) WBC Differential Differential Comment PT INR Sodium Potassium Chloride Carbon Dioxide Anion Gap BUN Creatinine Estimated GFR POC Glucose 332 H 287 H Random Glucose Calcium Stl C.difficile DNA Amp Negative St C. diff Tox Epid 027 Negative 05/14/18 05/14/18 05/14/18 06:54 06:54 06:54 WBC 10.8 RBC 4.22 Hgb 11.9 Hct 36.6 MCV 86.8 MCH 28.3 MCHC 32.6 RDW 16.4 Plt Count 138 L D MPV 11.0 Neut % (Auto) 74.0 H Lymph % (Auto) 11.5 Woodson % (Auto) 14.3 H Eos % (Auto) 0.1 Baso % (Auto) 0.1 Neut # (Auto) 8.0 H Lymph # (Auto) 1.2 Woodson # (Auto) 1.6 H Eos # (Auto) 0.0 Baso # (Auto) 0.0 WBC Differential . Differential Comment Auto diff final PT 12.3 H INR 1.2 Sodium 142 Potassium 3.4 L Chloride 107 Carbon Dioxide 26.5 Anion Gap 9 BUN 43 H Creatinine 1.12 H Estimated GFR 46 L POC Glucose Random Glucose 191 H D Calcium 8.8 Stl C.difficile DNA Amp St C. diff Tox Epid 027 05/14/18 09:37 WBC RBC Hgb Hct MCV MCH MCHC RDW Plt Count MPV Neut % (Auto) Lymph % (Auto) Woodson % (Auto) Eos % (Auto) Baso % (Auto) Neut # (Auto) Lymph # (Auto) Woodson # (Auto) Eos # (Auto) Baso # (Auto) WBC Differential Differential Comment PT INR Sodium Potassium Chloride Carbon Dioxide Anion Gap BUN Creatinine Estimated GFR POC Glucose 193 H Random Glucose Calcium Stl C.difficile DNA Amp St C. diff Tox Epid 027 Assessment and Plan (1) Esophageal cancer Status: Acute Code(s): C15.9 - Malignant neoplasm of esophagus, unspecified (2) Dysphagia Status: Acute Code(s): R13.10 - Dysphagia, unspecified - Plan This patient is an 87-year-old female with history of esophageal cancer. Patient is post esophageal stent on 05/11/2018. She presented to [facility] with recent onset of inability to tolerate anything p.o. Patient unable to speak clearly but is noted to have frequent bouts of nausea. History of atrial fibrillation on warfarin. Patient states last dose of warfarin greater than 2 weeks ago. Patient denies any coughing or choking with meals or liquids. She states p.o. intake feels stuck in her chest-patient points to epigastric area. Patient also endorses increasing acid reflux symptoms and with heartburn. Our service has been consulted to evaluate patient's increasing dysphagia. Plan -N.p.o. -CT chest with IV and p.o. contrast -CT abdomen/pelvis with IV and p.o. contrast -CTs to rule out stent migration -Antiemetic as per attending analgesic as per attending -Supportive care -Further recommendations to follow This patient has been seen by myself and Dr. Hill and this note is written on his behalf - Attending Attestation Dr. Hill (1) Esophageal cancer Qualifiers: Malignant neoplasm of esophagus location: unspecified location Qualified Code (s): C15.9 - Malignant neoplasm of esophagus, unspecified
[2018-05-14 14:57] VITALS: BP 164/77; PULSE 89; RESP 18; TEMP 98.3; O2SAT 96
--- NOTE | 2018-05-14 19:44 | ECG ---
Date Performed: 05/13/2018 Time Performed: 16:30:04 PTAGE: 87 years EKG: Atrial flutter with 3:1 A-V block. Extensive ST-T changes may be due to myocardial ischemia Abnormal ECG PREVIOUS TRACING :05/11/2018 @08.34 Compared to previous tracing, prior ekg showed atrial flutt er with variable block and present ekg shows atrial flutter with 3:1 block. DOCTOR: Osman Brizuela Interpretating Date/Time 05/14/2018 19:42:54
--- NOTE | 2018-05-15 11:14 | FL ---
EXAM DATE: 05/13/2018 3:07 PM EST AGE/SEX: 87 years / Female INDICATIONS: Dysphagia. CLINICAL DATA: This is the patient's initial encounter. Patient reports that signs and symptoms have been present for 2 weeks and indicates a pain score of 0/10. MEDICAL/SURGICAL HISTORY: . Carcinoma, esophageal. . esophageal stent None. COMPARISON: No prior exams available for comparison. FLUORO TIME: 1 IMAGE COUNT: 8 FINDINGS: A Gastrografin swallow was performed. Distal esophageal stent is noted in position. There is no evide nce of obstruction to the flow of Gastrografin. Gastrografin passes freely into the stomach. CONCLUSION: No evidence of esophageal obstruction with free flow of Gastrografin through the distal esophageal st ent. Electronically signed by: Shashank Nj MD 05/13/2018 3:11 PM EST
== END 2018-05-14 15:30 | disposition hospice, inpatient (51) ==
LOC: PHED 07:29 → PHEDA 09:34 → HCIN 12:35
PROVIDERS: ADMIT Hospitalist; ATTEND Hospitalist